=== PATIENT | female | born 1950 | race Caucasian/White ===

== ENCOUNTER 2016-07-01 10:02 | Outpatient (CLI) ==
[2016-01-14 11:09] VITALS: BMI 25.4
[2016-07-01 10:32] LABS: BASOPHILS % (AUTO) 0.4 % (0.0-3.0); EOSINOPHILS # (AUTO) 0.2 K/ul (0.0-0.7); EOSINOPHILS % (AUTO) 1.5 % (0.0-7.0); HEMATOCRIT 42.7 % (37.0-47.0); HEMOGLOBIN 14.2 g/dl (12.0-16.0); IMMATURE GRANULOCYTE % (AUTO) 0.2 % (0.0-5.0); LYMPHOCYTES # (AUTO) 1.9 K/uL (0.60-3.4); LYMPHOCYTES % (AUTO) 18.9 (10.0-50.0); MEAN CORPUSCULAR HEMOGLOBIN 29.6 pg (27.0-31.0); MEAN CORPUSCULAR HGB CONC 33.3 (31.8-35.4); MONOCYTES # (AUTO) 0.8 K/uL (0.4-2.0); MONOCYTES % (AUTO) 8.1 (0-10); NEUTROPHILS % (AUTO) 70.9; PLATELET COUNT 296 10^3/uL (140-440)
[2016-07-01 10:34] LABS: ADD URINE MICROSCOPIC YES; BILIRUBIN,URINE Negative (NEGATIVE); KETONES,URINE Negative (NEGATIVE); LEUKOCYTE ESTERASE ,URINE 1+ (NEGATIVE); NITRITE,URINE Negative (NEGATIVE); PH,URINE 5.5 (5-9); PROTEIN,URINE Negative (NEGATIVE); URINE, BLOOD Negative (NEGATIVE)
--- NOTE | 2016-07-01 10:37 | DI ---
EXAM: Two views of the chest. History: Short of breath Comparison: Chest radiograph 01/14/2016 Findings: Heart is mildly enlarged. No focal consolidation. No appreciable pleural fluid and no p neumothorax. Atherosclerotic vascular calcifications. No acute osseous abnormalities. Impression: Mild cardiomegaly without acute disease in the chest.
[2016-07-01 10:38] LABS: BACTERIA,URINE TRACE (NOT PRESENT)
[2016-07-01 10:54] LABS: ALBUMIN 4.3 g/dL (3.4-5.0); ALBUMIN/GLOBULIN RATIO 1.19; ANION GAP 14.9; BILIRUBIN,TOTAL 0.42 mg/dL (0.00-1.20); BUN/CREATININE RATIO 13.88; CALCIUM 9.9 mg/dL (8.2-10.2); CREATININE 1.44 mg/dL (0.60-1.30); POTASSIUM 3.9 mmol/L (3.5-5.10); TOTAL PROTEIN 7.9 g/dL (5.8-8.1)
== END 2016-07-01 10:03 | disposition home or self-care (01) ==
LOC: RAD 10:02
PROVIDERS: ATTEND Emergency Medicine
DX: R06.02 Shortness of breath (principal); R53.1 Weakness; R25.8 Other abnormal involuntary movements
CPT/HCPCS: 36415; 80053; 81001; 85025

== ENCOUNTER 2016-07-06 21:06 | Observation (INO) ==
[2016-07-06 21:21] VITALS: BMI 26.8
[2016-07-06] MEDS ORDERED: GI COCKTAIL PO STA (21:34)
--- NOTE | 2016-07-06 21:40 | ED.PDOC ---
General ED Provider: Dr. PANDA SHRESTHA Chief Complaint: Chest Pain Stated Complaint: Patient is a 65 year old who complains of left lower below the breast chest pain. She has had it off and on for two weeks. seen PCP given Breathing treatments but just made her jittery. Admits to smoking for a long time but has cut back in the past few days. Time Seen by Physician: 21:36 Mode of Arrival: Walk-In Information Source: Patient Exam Limitations: No limitations Primary Care Provider: CB SANTOS Nursing and Triage Documentation Reviewed and Agree: Yes Cardiovascular Complaint Exam - Chest Pain Complaint/Exam Onset: Gradual Duration: off and on for two months Symptoms Are: Still present Timing: Constant Length of Chest Pain Episodes: 30 min Initial Severity: Moderate Current Severity: Moderate Location: Reports: Left anterior (below the breast ) Pain Radiates: Reports: None Character: Reports: Heaviness Aggravating: Reports: Deep breaths Alleviating: Reports: None Associated Signs and Symptoms: Reports: Short of air. Denies: Diaphoresis, Nausea, Vomiting, Fever, Palpitations, Cough, Hemoptysis, Back pain, Abdominal pain, Dizziness, Calf pain, Calf swelling Related Surgical History: Reports: None AMI/ACS Risk Factors: Reports: Smoking Pulmonary Embolism Risk Factors: Reports: None Prior Care for this Complaint: No Recent Stress Test: No Recent Echo/LV Function: No JVD Present: No Subcutaneous Emphysema Present: No Diminshed Breath Sounds: No Reproducible Chest Wall Pain: No Bilateral Pulses Present: No Unequal Pulses Noted: No Review of Systems - Review Of Systems Constitutional: Reports: No symptoms Ears, Nose, Mouth, Throat: Reports: No symptoms Respiratory: Reports: Short of air Cardiac: Reports: Chest pain GI: Reports: No symptoms : Reports: No symptoms Musculoskeletal: Reports: No symptoms Skin: Reports: No symptoms Neurological: Reports: Anxiety Endocrine: Reports: No symptoms All Other Systems: Reviewed and Negative Past Medical History - Past Medical History Endocrine: Reports: None Cardiovascular: Reports: Hypertension Respiratory: Reports: Other Hematological: Reports: None Gastrointestinal: Reports: Other Genitourinary: Reports: Other Neuro/Psych: Reports: Other Musculoskeletal: Reports: Other Cancer: Reports: Other Last Menstrual Period: A LONG TIME AGO - Surgical History General Surgical History: Reports: Unknown - Family History Family History: Reports: Unknown - Social History Smoking Status: Current every day smoker, Heavy tobacco smoker Hx Substance Use: No Alcohol Screening: Occasionally - Immunizations Tetanus Shot up to Date: No Physical Exam - Physical Exam Appearance: Ill-appearing Ill-appearing: Moderate Pain Distress: Severe Eyes: KEE, EOMI, Conjunctiva clear Neck: Supple Respiratory: Airway patent, Breath sounds clear, Breath sounds equal, Respirations nonlabored Cardiovascular: RRR, Pulses normal, No rub, No murmur GI/: Soft Musculoskeletal: Normal strength Skin: Warm, Dry, Normal color Neurological: Sensation intact, Motor intact Psychiatric: Anxious Interpretation - Radiology Interpretation Radiology Interpretation By: Radiologist Radiology Results: Negative Exam Interpreted: CT Scan - [employer] Rate: Normal Rhythm: Sinus Ectopy: None - EKG Interpretation Rate: Normal Rhythm: Sinus Ectopy: None [place]: NL ST Segment: Normal Interpretation: Old Anterior infact age undetermined Critical Care Note - Critical Care Note Total Time (mins): 20 Course - Course Hematology/Chemistry: 07/08/16 05:30 07/08/16 05:30 Orders, Labs, Meds: Lab Review 07/06/16 21:40 WBC 7.44 RBC 4.52 Hgb 13.2 Hct 40.1 MCV 88.7 MCH 29.2 MCHC 32.9 RDW Coeff of Jostin 12.5 Plt Count 228 Immature Gran % (Auto) 0.3 Neut % (Auto) 47.0 Lymph % (Auto) 37.8 [place] % (Auto) 12.6 H Eos % (Auto) 1.9 Baso % (Auto) 0.4 Immature Gran # (Auto) 0.0 Neut # 3.5 Lymph # 2.8 [place] # 0.9 Eos # 0.1 Baso # 0.0 D-Dimer 596.64 H Sodium 140 Potassium 3.4 L Chloride 100 Carbon Dioxide 27 Anion Gap 16.4 BUN 22 H Creatinine 1.44 H Estimated GFR (MDRD) 37.00 BUN/Creatinine Ratio 15.27 Glucose 115 Calcium 9.6 Total Bilirubin 0.43 AST 16 ALT 14 Alkaline Phosphatase 138 Total Creatine Kinase 58 Troponin I 0.0210 B-Natriuretic Peptide 151 H Total Protein 7.4 Albumin 4.2 Globulin 3.2 Albumin/Globulin Ratio 1.31 Orders Category Date Time Status EKG-(ED ONLY) Stat CARDIO 07/06/16 21:34 Completed ED APPLY O2 .ONCE EMERGENCY 07/06/16 21:34 Active ED TOBACCO CURER APPLIED .ONCE EMERGENCY 07/06/16 21:34 Active ED IV/MEDIPORT/POWERPORT .ONCE EMERGENCY 07/06/16 21:34 Active B-TYPE NATRIURETIC PEPTIDE Stat LAB 07/06/16 21:40 Completed BLOOD CULTURE Stat LAB 07/06/16 21:40 Completed CBC W/ AUTO DIFF Stat LAB 07/06/16 21:40 Completed COMPREHENSIVE METABOLIC PANEL Stat LAB 07/06/16 21:40 Completed CREATINE KINASE Stat LAB 07/06/16 21:40 Completed D-DIMER Stat LAB 07/06/16 21:40 Completed TROPONIN I Stat LAB 07/06/16 21:40 Completed 0.9 % Sodium Chloride [Saline Flush] MEDS 07/06/16 21:34 Discontinued 1 syr IVF PRN PRN Ketorolac Tromethamine [Toradol] MEDS 07/06/16 21:42 Discontinued 30 mg IVP ONCE STA Mag-Al Plus//Lidocaine [Gi Cocktail] MEDS 07/06/16 21:34 Discontinued 30 ml PO ONCE STA Morphine Sulfate [Morphine 4 mg/ml Syringe] MEDS 07/06/16 23:32 Discontinued 4 mg IVP ONCE STA Ondansetron HCl/Pf [Zofran 4 mg/2 ml] MEDS 07/06/16 21:42 Discontinued 4 mg IVP ONCE STA CT CHEST W/O CONTRAST Stat RADS 07/06/16 21:44 Completed Medications Discontinued Medications Generic Name Dose Route Start Last Admin Trade Name Freq PRN Reason Stop Dose Admin Al Hydroxide/Mg Hydroxide 30 ml 07/06/16 21:34 07/06/16 21:40 Gi Cocktail PO 07/06/16 21:35 30 ml ONCE STA Administration Alprazolam 0.25 mg 07/06/16 23:50 07/08/16 09:07 Xanax PO 0.25 mg TID PRN Administration Anxiety Aspirin 81 mg 07/07/16 08:00 07/08/16 09:07 Aspirin Ec PO 81 mg DAILYWM CHILO Administration Carvedilol 12.5 mg 07/07/16 08:00 07/07/16 08:49 Coreg PO Not Given BIDWM CHILO Carvedilol 12.5 mg 07/07/16 08:30 07/08/16 09:06 Coreg PO 12.5 mg BIDWM CHILO Administration Ciprofloxacin 250 mg 07/07/16 09:00 07/07/16 20:46 Cipro PO 07/07/16 23:59 250 mg BIDCIPRO CHILO Administration Enoxaparin Sodium 40 mg 07/07/16 09:00 07/08/16 09:07 Lovenox SUBCUT 40 mg DAILY CHILO Administration Escitalopram Oxalate 20 mg 07/08/16 09:00 07/08/16 09:07 Lexapro PO 20 mg DAILY CHILO Administration HCTZ/Losartan Potassium 1 tab 07/07/16 09:00 07/08/16 09:07 Hyzaar 50-12.5 Mg Tab PO 1 tab QAM CHILO Administration Ketorolac Tromethamine 30 mg 07/06/16 21:42 07/06/16 22:06 Toradol IVP 07/06/16 21:43 30 mg ONCE STA Administration Ketorolac Tromethamine 30 mg 07/07/16 08:49 07/07/16 10:27 Toradol IVP 07/07/16 08:50 30 mg ONCE STA Administration Morphine Sulfate 4 mg 07/06/16 23:32 07/06/16 23:39 Morphine 4 Mg/Ml Syringe IVP 07/06/16 23:33 4 mg ONCE STA Administration Morphine Sulfate 2 mg 07/06/16 23:45 07/07/16 18:18 Morphine 2 Mg/Ml Syringe IVP 2 mg Q4H PRN Administration Severe Pain Non-Formulary Medication 1 each 07/07/16 09:00 07/08/16 09:11 Umeclidinium Brm/Vilanterol Tr [Anoro Ellipta 62.5-25 Mcg Inh] IH Not Given DAILY CHILO Omeprazole 20 mg 07/07/16 06:30 07/07/16 06:10 Prilosec PO 20 mg BIDAC CHILO Administration Omeprazole 20 mg 07/07/16 17:00 07/08/16 05:34 Prilosec PO 20 mg BIDAC CHILO Administration Ondansetron HCl 4 mg 07/06/16 21:42 07/06/16 22:07 Zofran 4 Mg/2 Ml IVP 07/06/16 21:43 4 mg ONCE STA Administration Ondansetron HCl 4 mg 07/06/16 23:45 Zofran 4 Mg/2 Ml IVP Q6H PRN Nausea / Vomiting Sodium Chloride 1 syr 07/06/16 21:34 07/06/16 23:44 Saline Flush IVF 1 syr PRN PRN Administration To flush IV Sodium Chloride 1 syr 07/07/16 05:00 07/08/16 13:11 Saline Flush IVF 1 syr Q8HR CHILO Administration Vital Signs: Temp Pulse Resp BP Pulse Ox 07/06/16 21:08 98.4 F 62 18 176/85 H 98 JUDY Risk Score Age >/= 65: Yes >/= 3 CAD Risk Factors: Yes Known CAD (Stenosis >/= 50%): No ASA Use in Past 7 Days: Yes Severe Angina (>/= 2 episodes in 24 hours): Yes EKG ST Changes >/= 0.5mm: No Postive Cardiac Marker: No JUDY Total Score: 4 JUDY Risk Score: Risk Score Odds of by 30D 0 0.1 (0.1-0.2) 1 0.3 (0.2-0.3) 2 0.4 (0.3-0.5) 3 0.7 (0.6-0.9) 4 1.2 (1.0-1.5) 5 2.2 (1.9-2.6) 6 3.0 (2.5-3.6) 7 4.8 (3.8-6.1) Departure - Departure Time of Disposition: 23:53 Disposition: PLACED OBSERVATION Discharge Problem: Chest pain Condition: Fair Pt referred to PMD for follow-up: Yes Allergies/Adverse Reactions: Allergies No Known Allergies Allergy (Verified 07/15/16 01:34) Home Medications: Ambulatory Orders Alprazolam [Xanax] 0.25 mg PO TID PRN #90 tablet 01/18/16 Aspirin [Aspirin EC] 81 mg PO DAILYWM #30 tablet. 01/18/16 Carvedilol [Coreg] 12.5 mg PO BIDWM #60 tablet 01/18/16 Losartan/Hydrochlorothiazide [Hyzaar 50-12.5 mg Tab] 1 tab PO QAM #30 tablet Omeprazole [Prilosec] 20 mg PO BIDAC 07/06/16 Prednisone 5 mg PO BIDWM #14 tablet 07/08/16 Albuterol Sulfate [Ventolin Hfa] 2 puff IH Q4H PRN 07/15/16
[2016-07-06] MEDS ORDERED: TORADOL IVP STA (21:42)
[2016-07-06] MEDS ORDERED: ZOFRAN 4 MG/2 ML IVP STA (21:42)
[2016-07-06 21:53] LABS: BASOPHILS % (AUTO) 0.4 % (0.0-3.0); EOSINOPHILS # (AUTO) 0.1 K/ul (0.0-0.7); EOSINOPHILS % (AUTO) 1.9 % (0.0-7.0); HEMATOCRIT 40.1 % (37.0-47.0); HEMOGLOBIN 13.2 g/dl (12.0-16.0); IMMATURE GRANULOCYTE % (AUTO) 0.3 % (0.0-5.0); LYMPHOCYTES # (AUTO) 2.8 K/uL (0.60-3.4); LYMPHOCYTES % (AUTO) 37.8 (10.0-50.0); MEAN CORPUSCULAR HEMOGLOBIN 29.2 pg (27.0-31.0); MEAN CORPUSCULAR HGB CONC 32.9 (31.8-35.4); MEAN CORPUSCULAR VOLUME 88.7 fl (81.0-99.0); MONOCYTES # (AUTO) 0.9 K/uL (0.4-2.0); MONOCYTES % (AUTO) 12.6 (0-10); NEUTROPHILS # (AUTO) 3.5 K/ul (2.0-6.9); PLATELET COUNT 228 10^3/uL (140-440); RED BLOOD COUNT 4.52 10^6/ul (4.20-5.40); WHITE BLOOD COUNT 7.44 K/ul (4.6-10.2)
[2016-07-06 22:18] LABS: ALBUMIN 4.2 g/dL (3.4-5.0); ALBUMIN/GLOBULIN RATIO 1.31; ANION GAP 16.4; BILIRUBIN,TOTAL 0.43 mg/dL (0.00-1.20); BUN/CREATININE RATIO 15.27; CALCIUM 9.6 mg/dL (8.2-10.2); CREATININE 1.44 mg/dL (0.60-1.30); POTASSIUM 3.4 mmol/L (3.5-5.10); TOTAL PROTEIN 7.4 g/dL (5.8-8.1); TROPONIN I 0.021 ng/ml (0.0000-0.4000)
--- NOTE | 2016-07-06 22:22 | CT ---
Exam: CT of the chest without contrast History: Chest pain Technique: [address] of the chest without intravascular contrast FINDINGS: Lung windows show mild emphysematous change. No parenchymal abnormality otherwise. Ather osclerotic calcification of the aorta and coronary arteries. No pathologic lymph node enlargement o r abundance of mediastinum. No acute findings of the chest wall soft tissues or bony thorax. No ac tex findings of the upper abdomen. Scarring and parenchymal calcifications of the right kidney. Impression: 1. No acute findings of the chest 2. Mild emphysematous change
[2016-07-06] MEDS ORDERED: MORPHINE 4 MG/ML SYRINGE IVP STA (23:32)
[2016-07-06] MEDS ORDERED: ZOFRAN 4 MG/2 ML IVP PRN (23:45)
[2016-07-06] MEDS ORDERED: MORPHINE 2 MG/ML SYRINGE IVP PRN (23:45)
[2016-07-07 06:26] LABS: BASOPHILS % (AUTO) 0.3 % (0.0-3.0); EOSINOPHILS # (AUTO) 0.2 K/ul (0.0-0.7); EOSINOPHILS % (AUTO) 2.1 % (0.0-7.0); HEMATOCRIT 39.8 % (37.0-47.0); HEMOGLOBIN 12.8 g/dl (12.0-16.0); IMMATURE GRANULOCYTE % (AUTO) 0.3 % (0.0-5.0); LYMPHOCYTES # (AUTO) 2.4 K/uL (0.60-3.4); LYMPHOCYTES % (AUTO) 34.4 (10.0-50.0); MEAN CORPUSCULAR HGB CONC 32.2 (31.8-35.4); MONOCYTES # (AUTO) 0.9 K/uL (0.4-2.0); MONOCYTES % (AUTO) 12.8 (0-10); NEUTROPHILS # (AUTO) 3.5 K/ul (2.0-6.9); NEUTROPHILS % (AUTO) 50.1; PLATELET COUNT 208 10^3/uL (140-440); RED BLOOD COUNT 4.42 10^6/ul (4.20-5.40); WHITE BLOOD COUNT 6.98 K/ul (4.6-10.2)
[2016-07-07] MEDS ORDERED: PRILOSEC PO SCH (06:30)
[2016-07-07 06:58] LABS: ANION GAP 14.6; BUN/CREATININE RATIO 12.75; CALCIUM 9.4 mg/dL (8.2-10.2); CREATININE 1.96 mg/dL (0.60-1.30); POTASSIUM 3.6 mmol/L (3.5-5.10); TROPONIN I 0.028 ng/ml (0.0000-0.4000)
[2016-07-07 07:25] LABS: CREATINE KINASE MB 1.8 ng/ml (0.0-3.6)
[2016-07-07] MEDS ORDERED: COREG PO SCH (08:00)
[2016-07-07] MEDS ORDERED: TORADOL IVP STA (08:49)
[2016-07-07] MEDS: ASPIRIN EC PO SCH (09:55)
[2016-07-07] MEDS: CIPRO PO SCH ×2 (09:56→20:46)
[2016-07-07] MEDS: HYZAAR 50-12.5 MG TAB PO SCH (09:56)
[2016-07-07] MEDS: COREG PO SCH ×2 (09:56→16:44)
[2016-07-07] MEDS: XANAX PO PRN ×2 (09:57→18:06)
[2016-07-07] MEDS: LOVENOX SUBCUT SCH (10:00)
[2016-07-07] MEDS: NON-FORMULARY MEDICATION (Umeclidinium Brm/Vilanterol Tr [Anoro Ellipta 62.5-25 Mcg Inh] 1 IH SCH (10:01)
[2016-07-07 15:06] LABS: TROPONIN I 0.014 ng/ml (0.0000-0.4000)
[2016-07-07 15:08] LABS: CREATINE KINASE MB 3.2 ng/ml (0.0-3.6)
[2016-07-07] MEDS: PRILOSEC PO SCH (16:44)
[2016-07-08] MEDS: PRILOSEC PO SCH (05:34)
[2016-07-08 06:09] LABS: BASOPHILS % (AUTO) 0.3 % (0.0-3.0); EOSINOPHILS # (AUTO) 0.2 K/ul (0.0-0.7); EOSINOPHILS % (AUTO) 2.3 % (0.0-7.0); HEMATOCRIT 38.4 % (37.0-47.0); HEMOGLOBIN 12.4 g/dl (12.0-16.0); IMMATURE GRANULOCYTE % (AUTO) 0.3 % (0.0-5.0); LYMPHOCYTES # (AUTO) 2.5 K/uL (0.60-3.4); LYMPHOCYTES % (AUTO) 31.8 (10.0-50.0); MEAN CORPUSCULAR HEMOGLOBIN 29.1 pg (27.0-31.0); MEAN CORPUSCULAR HGB CONC 32.3 (31.8-35.4); MEAN CORPUSCULAR VOLUME 90.1 fl (81.0-99.0); MONOCYTES # (AUTO) 0.8 K/uL (0.4-2.0); MONOCYTES % (AUTO) 9.9 (0-10); NEUTROPHILS # (AUTO) 4.4 K/ul (2.0-6.9); NEUTROPHILS % (AUTO) 55.4; PLATELET COUNT 204 10^3/uL (140-440); RED BLOOD COUNT 4.26 10^6/ul (4.20-5.40); WHITE BLOOD COUNT 7.86 K/ul (4.6-10.2)
[2016-07-08 06:35] LABS: ANION GAP 13.8; BUN/CREATININE RATIO 18.33; CALCIUM 9.3 mg/dL (8.2-10.2); CREATININE 1.8 mg/dL (0.60-1.30); POTASSIUM 3.8 mmol/L (3.5-5.10)
[2016-07-08] MEDS ORDERED: ATROPINE SULFATE PFS ONE (07:12)
[2016-07-08] MEDS ORDERED: DOBUTAMINE 250 ML IV ONE (07:12)
[2016-07-08] MEDS ORDERED: LEXAPRO PO SCH (09:00)
[2016-07-08] MEDS: COREG PO SCH (09:06)
[2016-07-08] MEDS: HYZAAR 50-12.5 MG TAB PO SCH (09:07)
[2016-07-08] MEDS: ASPIRIN EC PO SCH (09:07)
[2016-07-08] MEDS: XANAX PO PRN (09:07)
[2016-07-08] MEDS: LOVENOX SUBCUT SCH (09:07)
[2016-07-08] MEDS: NON-FORMULARY MEDICATION (Umeclidinium Brm/Vilanterol Tr [Anoro Ellipta 62.5-25 Mcg Inh] 1 IH SCH (09:11)
[2016-07-08 10:26] VITALS: BP 108/61; TEMP 97.5
--- NOTE | 2016-07-08 13:17 | PN ---
DATE OF SERVICE: 07/07/16 SUBJECTIVE: The patient is a 65 year old female been having the left sided chest pain was seen in the office three days ago thinking it maybe a rib fracture; x-ray of the rib was negative. The patient went home and still having the left sided chest pain and the pain was sometimes radiating to the left arm with some shortness of breath. She has a history or COPD but the patient got panicked today and came back to the emergency room again. She was seen by Dr. Velarde. EKG is normal sinus no acute ST-T wave changes. First set of cardiac enzymes are negative. Chest x-ray is negative for any pneumonia. In review of her smoking and age the patient is admitted to the hospital for observation to rule out acute coronary syndrome. REVIEW OF SYSTEMS: CONSTITUTIONAL: No fever, no chills. HEENT: Normal. ENDOCRINE: No weight gain, no weight loss. CVS: No angina symptoms. No CHF symptoms. No palpitations. No atypical chest pain for CAD. No shortness of breath. No PND, no orthopnea. RESPIRATORY: No cough, no hemoptysis. GI: No nausea, no vomiting. No abdominal pain. : No hematuria. No polyuria. MUSCULOSKELETAL:. No joint swelling. PSYCHIATRIC: Not anxious. No depression. No suicidal thoughts. No homicidal thoughts. SKIN: Intact. No rash. PHYSICAL EXAMINATION: GENERAL: As of now the patient is lying in the bed and not in any distress, complains about the left sided chest pain. V/S: Blood pressure 122/60, respiratory rate 16, heart rate 63, temperature 97.9. HEENT: Normocephalic, atraumatic. Ears, eyes, nose and throat normal. Mucosa dry. NECK: Supple. No JVD, no carotid bruit. No lymphadenopathy. LUNGS: Clear to auscultation. No rales or rhonchi. HEART: S1, S2 normal. No S3. No murmur, gallop or regurgitation. Left lower rib tenderness, percussion tenderness is positive. Palpable tenderness is positive. No lesion there. ABDOMEN: Soft, nontender. Bowel sounds active. No rigidity. No rebound or guarding. No CVA tenderness. EXTREMITIES: No clubbing, cyanosis or pedal edema. MUSCULOSKELETAL: No joint swelling. NEUROLOGIC: Awake, alert, oriented times three. No focal deficit. LYMPHATIC: No lymph nodes palpable. SKIN: Intact. No rash. LABS: WBC 6.98, hgb 12.8, hct 39.8, plt count 208, d-dimer 596, sodium 142, potassium 3.6, chloride 100, Bicarb 31, BUN 25, creatinine 1.96 and BNP 151. Chest x-ray negative and CT of the chest is negative. ASSESSMENT: 1. Chest pain rule out ACS 2. Left sided lower rib cage pain 3. Anxiety 4. Hypertension 5. COPD 6. Osteoarthritis PLAN: 1. Admit patient for the observation 2. CBC and CMP today and daily 3. Cardiac enzymes and Troponin 4. Toradol 30mg IV push 5. Will get a Dobutamine stress echo in the morning sestamibi 6. Morphine for the paint but the patient doesn't morphine as it made her feel funny TIME SPENT: More than 30 minutes MTDD
--- NOTE | 2016-07-09 09:24 | DOBSTECHO ---
Ordering Physician: JAZMYNE VEGA Date of Test: 07/08/16 Reason for Examination: CHEST PAIN Current Medications: COREG, HYZAAR, PRILOSEC, CIPRO, XANAX Height: 65" Weight: 161 LBS Target Heart Rate: 131/155 ST Segment Stage Time HR/BPM BP/MMHG Rhythm +/- Up Down Comments/Symptoms Control Sitting 70 142/60 SR X NONE Dobutamine 250mg/D5W 5cmg/KG/mn 10cmg/KG/mn 3:00 98 180/68 SR X NONE 15cmg/KG/mn 2:00 88 186/60 SR X NONE 20cmg/KG/mn 2:00 96 178/60 SR X NONE 25cmg/KG/mn 2:00 99 182/54 SR X NONE 30cmg/KG/mn 2:00 106 SR X NONE 35cmg/KG/mn 2:00 115 188/46 SR X NONE 40cmg/KG/mn :24 120 Time: 4" HR B/P Time: 8" HR B/P Time: HR B/P Recovery 96 176/58 Recovery 87 Recovery Total Time: 13:24 Maximum Heart Rate Reached: 120 Interpretation: 1. NO EVIDENCE OF ISCHEMIA BY ST-T WAVE CHANGES FROM HEART RATE 70/MINUTE TO 120 /MINUTE 2. NO CHEST PAIN OR CHEST DISCOMFORT 3. NORMAL LEFT VENTRICULAR CONTRACTILITY RESTING AND POST EXERCISE MTDD
--- NOTE | 2016-07-09 09:28 | ECHOSTRESS ---
Date of Exam: 07/08/16 Ordering Physician: JAZMYNE VEGA Reason for Echo: CHEST PAIN, DOBUTAMINE STRESS --NO ISCHEMIA M-Mode Normal Adult Results LV Dimensions Normal Adult Results AoV Opening excursions >1.6 LVEDD-base- 3.5-5.8 Ao root dimensions 2.0-3.7 LVESD-base- 3.1-4.6 L. Atrium dimensions 1.9-3.8 Post. Wall thickness 0.8-1.1 IV septum (thickness) 0.7-1.2 Post. Wall excursion 0.72-1.3 Septal motion Systolic motion R. Ventricular cavity 1.5-2.0 LVEF 60% Paradoxical septal wall motion 2-D: NORMAL LEFT VENTRICULAR CONTRACTILITY--RESTING AND DURING DOBUTAMINE INFUSION M-MODE: MV: AV: TV: PV: CHAMBER SIZE: WALL MOTION: NORMAL LEFT VENTRICULAR CONTRACTILITY--RESTING AND DURING DOBUTAMINE INFUSION PERICARDIUM: INTERPRETATION: 1. NORMAL LEFT VENTRICULAR CONTRACTILITY--RESTING AND DURING DOBUTAMINE INFUSION MTDD
--- NOTE | 2016-07-09 15:54 | PN ---
DATE OF SERVICE: 07/08/16 SUBJECTIVE: The patient is a lying in the bed and not in any distress. Just had a stress test done and says that during the Dobutamine stress echo she did have shakiness , Still has complaints about the left lower rib hurting when you touch. REVIEW OF SYSTEMS: CONSTITUTIONAL: No fever, no chills. HEENT: Normal. ENDOCRINE: No weight gain, no weight loss. CVS: No angina symptoms. No CHF symptoms. No palpitations. No atypical chest pain for CAD. No shortness of breath. No PND, no orthopnea. RESPIRATORY: No cough, no hemoptysis. GI: No nausea, no vomiting. No abdominal pain. : No hematuria. No polyuria. MUSCULOSKELETAL:. No joint swelling. PSYCHIATRIC: Anxious. No depression. No suicidal thoughts. No homicidal thoughts. SKIN: Intact. No rash. PHYSICAL EXAMINATION: V/S: Blood pressure 135/73, respiratory rate 18, heart rate 81 and temperature 97.9. HEENT: Normocephalic, atraumatic. Ears, eyes, nose and throat normal. NECK: Supple. No JVD, no carotid bruit. No lymphadenopathy. LUNGS: Clear to auscultation. No rales or rhonchi. HEART: S1, S2 normal. No S3. No murmur, gallop or regurgitation. ABDOMEN: Soft, nontender. Bowel sounds active. No rigidity. No rebound or guarding. No CVA tenderness. Left lower rib tenderness is present. EXTREMITIES: No clubbing, cyanosis or pedal edema. MUSCULOSKELETAL: No joint swelling. NEUROLOGIC: Awake, alert, oriented times three. No focal deficit. LYMPHATIC: No lymph nodes palpable. SKIN: Intact. LABS: WBC 7.86, hgb 12.4, hct 38.4, plt count 204, Sodium 141, potassium 3.8, chloride 101, [id number], BUN 33 and creatinine 1.30. ASSESSMENT: 1. Chest pain, rule ACS 2. Left lower rib tenderness most likely costochondritis 3. COPD 4. Chronic kidney disease 5. Anxiety 6. Depression PLAN: 1. Discharge patient home 2. Lifestyle modification 3. Lexapro 20mg PO daily 4. Increase Xanax three times a day 5. Prednisone 5mg twice a day 6. Activity as tolerated 7. Follow up in the office within one week. TIME SPENT: More than 30 minutes MTDD
--- NOTE | 2016-07-22 08:51 | SSS ---
DATE OF SERVICE: 07/06/16 - Admission date 07/08/16 - Discharge date REASON FOR ADMISSION: Chest pain. HISTORY OF PRESENT ILLNESS: This is a 65-year-old female admitted with complaint of chest pain. She complains of pain under left breast, sharp then dull for 4 days. Heaviness and shortness of air at times. No nausea. No abdominal pain. No diaphoresis. REVIEW OF SYSTEMS: CONSTITUTIONAL: No night sweats. No fatigue, malaise, lethargy. No fever or chills. HEENT: Eyes: No visual changes. No eye pain. No eye discharge. ENT: No runny nose. No epistaxis. No sinus pain. No sore throat. No odynophagia. No ear pain. No congestion. RESPIRATORY: No cough, no congestion. No hemoptysis. CARDIOVASCULAR: No angina symptoms. No CHF symptoms. No atypical chest pain for CAD. No palpitations. No shortness of breath. Pain under left breast, tenderness under left breast. Shortness of air at times. GASTROINTESTINAL: No nausea. No abdominal pain. No nausea or vomiting. No diarrhea or constipation. No hematemesis. No hematochezia. GENITOURINARY: No urgency. No frequency. No dysuria. No hematuria. No obstructive symptoms. No discharge. No pain. No significant abnormal bleeding. MUSCULOSKELETAL: As above, pain under left breast. NEUROLOGICAL: Awake, alert, oriented to time, place and person. No headache. No neck pain. No syncope. No seizures. No dizziness. PSYCHIATRIC: Anxious. No depression. No suicidal thoughts. No homicidal thoughts. SKIN: No rash. No lesions. No wounds. ENDOCRINE: No unexplained weight loss. No weight gain. HEMATOLOGIC/LYMPHATIC: No anemia. No purpura. No petechiae. No prolonged or excessive bleeding. No palpable lymph nodes. PAST HISTORY: 1. Hypertension 2. Migraines 3. GI disorder 4. Right wrist fracture 5. Ankle fracture PERSONAL/FAMILY HISTORY/SOCIAL HISTORY: ; lives alone. No BME reported. Current smoker (heavy). Occasional alcohol use. PHYSICAL EXAMINATION: GENERAL: female, age 65 years. Height 65 inches, weight 161 lbs. BMI 26.8. VITAL SIGNS: Temperature 97.2, pulse 60, respiratory rate 20, BP 115/68. 95% on room air. HEENT: Head normocephalic, atraumatic. Eyes: Extraocular muscles are intact. Pupils are equal, round and reactive to light and accommodation. Ears: No lesions. Nose appeared normal. Throat: No exudate or erythema. NECK: Supple. No JVD, no carotid bruit. No lymphadenopathy or thyromegaly. LUNGS: Bilaterally clear and equal. Percussion note normal. Chest symmetrical. HEART: S1, S2, no S3. No murmur, gallop or regurgitation. No cyanosis or clubbing. No ascites. Pulses: Dorsalis pedis and posterior tibial pulses +1 to +2 both sides. ABDOMEN: Soft. Nontender. Bowel sounds active. No ascites. No CVA tenderness. No mass felt. EXTREMITIES: No edema. Full range of motion of all extremities, equal. [employer]: Awake, alert, oriented times three. No deficit. SKIN: Not dry. Intact. Turgor - normal. LYMPHATIC: No palpable lymph nodes/no lymphedema. MUSCULOSKELETAL: Normal joints with no swelling. Muscle tone is normal. Old/present records reviewed Office records reviewed. ALLERGIES: NKDA MEDICATIONS: 1. Xanax 2. ASA 3. Carvedilol 4. Hyzaar 5. Omeprazole LABS/EKG'S/X-RAY/ECHO/ABG: CBC within normal limits. K+ 3.4, BUN 22, creatinine 1.44, CPK 58, troponin 0.0210, BNP 151. CPK, troponin within normal limits times three. EKG - normal sinus rhythm. Inferior wall OH age undetermined. Chest CT: No acute findings. Mild emphysema. PROGRESS NOTES: See EMR. DIAGNOSES: 1. CHEST PAIN, RULE OUT ACS 2. COPD 3. GENERALIZED ANXIETY DISORDER 4. DEPRESSION 5. GI DISEASE RECOMMENDATIONS/PLAN: 1. Discharge home 2. Continue home medications 3. Prescription for 5 mg Prednisone b.i.d. times 7 days 4. Lexapro 20 mg daily 5. Make appointment to see Dr. Stout on Tuesday or Tuesday RYAN
== END 2016-07-08 14:24 | disposition home or self-care (01) ==
LOC: ED 21:06 → MEDSURG A 23:37
PROVIDERS: ADMIT Emergency Medicine; ATTEND Emergency Medicine
DX: R07.89 Other chest pain (principal); I10 Essential (primary) hypertension; R07.81 Pleurodynia; J44.9 Chronic obstructive pulmonary disease, unspecified; N18.9 Chronic kidney disease, unspecified; R06.02 Shortness of breath; I25.2 Old myocardial infarction; K92.9 Disease of digestive system, unspecified; M19.90 Unspecified osteoarthritis, unspecified site; F17.210 Nicotine dependence, cigarettes, uncomplicated; F41.1 Generalized anxiety disorder; F32.9 Major depressive disorder, single episode, unspecified; Z79.82 Long term (current) use of aspirin; Z79.899 Other long term (current) drug therapy
CPT/HCPCS: 36415; 80048; 80053; 82550; 82553; 83880; 84484; 85025; 85379; 87040; 93005; 93010; 96372; 96374; 96375; 96376; 99284

== ENCOUNTER 2016-07-14 23:30 | Emergency (ER) ==
[2016-07-14] MEDS ORDERED: DUONEB NEB ONE (23:55)
[2016-07-15 01:34] VITALS: BP 149/83; TEMP 98.1; BMI 26.1
[2016-07-15 02:22] LABS: ABG PCO2 40.5 mmHg (35-45); ABG PH 7.491 (7.35-7.45)
[2016-07-15 02:23] LABS: ABG BASE EXCESS 8 (-2.0-2.0); ABG HCO3 30.9 (22.0-26.0); ABG TCO2 32 (22.0-28.0)
[2016-07-15] MEDS ORDERED: DUONEB NEB STA (02:30)
--- NOTE | 2016-07-15 03:05 | ED.PDOC ---
[id number]: see triage note==--the patient presented during computer downtime and this is an attempt to complete the chart--most of of the data is on paper and not included in this hx Time Seen by Physician: 23:35 Mode of Arrival: Walk-In Information Source: Patient Exam Limitations: No limitations Primary Care Provider: CB MANCIA Nursing and Triage Documentation Reviewed and Agree: Yes Respiratory Complaint Exam - Shortness of Air Complaint/Exam Onset/Duration: several hours Symptoms Are: Still present Timing: Intermittent Initial Severity: Mild Current Severity: Mild Character: Reports: Dyspnea on exertion Aggravating: Reports: None Alleviating: Reports: Bronchodilators Associated Signs and Symptoms: Reports: Cough. Denies: Wheezing, Chest pain with cough, Chest pain, Fever, Chills, Diaphoresis, Nasal congestion, Dizziness , Calf pain, Calf swelling, Edema, Rapid breathing, Labored breathing, Decreased intake Pseudomonas Risk Factors: Reports: None Tuberculosis Risk Factors: Reports: None Home Oxygen Use: No Recent Stress Test: No Recent Echo/LV Function: No Respiratory Distress: None Stridor Present: No Tracheal Deviation: No Subcutaneous Emphysema: No Accessory Muscle Use: No Retractions: Not Present Diminished Breath Sounds: No Prolonged Expiratory Phase: No Unable to Speak Full Sentences: No Fatigue: No Leg Swelling: No Mauricio's Sign Present: No Grunting Respirations: No Kussmaul Respirations: No Differential Diagnoses: Bronchitis Quality Indicator For Non-Traumatic Chest Pain/Syncope: EKG Performed Review of Systems - Review Of Systems Constitutional: Reports: No symptoms Eyes: Reports: No symptoms Ears, Nose, Mouth, Throat: Reports: No symptoms Respiratory: Reports: Cough, Short of air Cardiac: Reports: No symptoms, Palpitations GI: Reports: No symptoms : Reports: No symptoms Musculoskeletal: Reports: No symptoms Skin: Reports: No symptoms Neurological: Reports: No symptoms Endocrine: Reports: No symptoms Hematologic/Lymphatic: Reports: No symptoms All Other Systems: Reviewed and Negative Past Medical History - Past Medical History Endocrine: Reports: None Cardiovascular: Reports: Hypertension Respiratory: Reports: Other Hematological: Reports: None Gastrointestinal: Reports: Other Genitourinary: Reports: Other Neuro/Psych: Reports: Other Musculoskeletal: Reports: Other Cancer: Reports: Other Last Menstrual Period: N/A - Surgical History General Surgical History: Reports: Unknown - Family History Family History: Reports: Unknown - Social History Smoking Status: Current some day smoker Hx Substance Use: No Alcohol Screening: Occasionally Lives: With family - Immunizations Tetanus Shot up to Date: Yes Physical Exam - Physical Exam Appearance: Well-appearing, No pain distress, Well-nourished Eyes: KEE, EOMI, Conjunctiva clear ENT: Ears normal, Nose normal, Oropharynx normal Neck: Supple Respiratory: Airway patent, Breath sounds clear, Breath sounds equal, Respirations nonlabored Cardiovascular: RRR, Pulses normal, No rub, No murmur GI/: Soft, Nontender, No masses, Bowel sounds normal, No Organomegaly Musculoskeletal: Normal strength, ROM intact, No edema, No calf tenderness Skin: Warm, Dry, Normal color Neurological: Sensation intact, Motor intact, Reflexes intact, Cranial nerves intact, Alert, Oriented Psychiatric: Affect appropriate, Mood appropriate Interpretation - Radiology Interpretation Radiology Interpretation By: Radiologist Radiology Results: Positive Exam Interpreted: CXR ("emphysema") Critical Care Note - Critical Care Note Total Time (mins): 0 Course - Course Hematology/Chemistry: 07/15/16 03:15 07/15/16 03:15 Orders, Labs, Meds: Lab Review 07/15/16 07/15/16 02:18 03:15 WBC 9.25 RBC 4.51 Hgb 13.3 Hct 39.5 MCV 87.6 MCH 29.5 MCHC 33.7 RDW Coeff of Jostin 12.5 Plt Count 273 Immature Gran % (Auto) 0.0 Neut % (Auto) 68.2 Lymph % (Auto) 23.8 [place] % (Auto) 7.0 Eos % (Auto) 0.5 Baso % (Auto) 0.2 Immature Gran # (Auto) 0.0 Neut # 6.3 Lymph # 2.2 [place] # 0.7 Eos # 0.1 Baso # 0.0 D-Dimer 0.48 Puncture Site Lb O2 Saturation 99.0 ABG pH 7.491 H ABG pCO2 40.5 ABG pO2 102.0 H ABG HCO3 30.9 H ABG Total CO2 32 H ABG Base Excess 8 H Da Test + FiO2 % 21.0 Sodium 135 L Potassium 4.0 Chloride 98 Carbon Dioxide 24 Anion Gap 17.0 BUN 33 H Creatinine 1.54 H Estimated GFR (MDRD) 34.00 BUN/Creatinine Ratio 21.42 Glucose 128 H Calcium 9.7 Total Bilirubin 0.53 AST 14 L ALT 13 Alkaline Phosphatase 119 Total Creatine Kinase 48 Troponin I 0.0370 B-Natriuretic Peptide 117 H Total Protein 7.4 Albumin 4.2 Globulin 3.2 Albumin/Globulin Ratio 1.31 Orders Category Date Time Status ABG DRAW REQUEST Stat CARDIO 07/15/16 02:18 Completed EKG-(ED ONLY) Stat CARDIO 07/15/16 03:17 Completed NEBULIZER TREATMENT Stat CARDIO 07/15/16 02:30 Completed ABG Stat LAB 07/15/16 02:18 Completed B-TYPE NATRIURETIC PEPTIDE Stat LAB 07/15/16 03:15 Completed CBC W/ AUTO DIFF Stat LAB 07/15/16 03:15 Completed COMPREHENSIVE METABOLIC PANEL Stat LAB 07/15/16 03:15 Completed CREATINE KINASE Stat LAB 07/15/16 03:15 Completed D-DIMER Stat LAB 07/15/16 03:15 Completed TROPONIN I Stat LAB 07/15/16 03:15 Completed Ipratropium/Albuterol Neb [Duoneb] MEDS 07/14/16 23:55 Discontinued 1 vial NEB .STK-MED ONE Ipratropium/Albuterol Neb [Duoneb] MEDS 07/15/16 06:24 Discontinued 1 vial NEB .STK-MED ONE Ipratropium/Albuterol Neb [Duoneb] MEDS 07/15/16 02:30 Discontinued 1 vial NEB ONCE STA CHEST, 2 VIEWS PA & LAT Stat RADS 07/15/16 00:00 Completed Medications Discontinued Medications Generic Name Dose Route Start Last Admin Trade Name Freq PRN Reason Stop Dose Admin Albuterol/Ipratropium 1 vial 07/15/16 02:30 07/14/16 23:55 Duoneb NEB 07/15/16 02:31 1 vial ONCE STA Administration Vital Signs: Temp Pulse Resp BP Pulse Ox 07/14/16 23:30 98.1 F 77 22 149/83 H 100 Departure - Departure Time of Disposition: 03:04 Disposition: HOME SELF-CARE Discharge Problem: Dyspnea Qualifiers: Dyspnea type: unspecified Qualifier Code: (R06.00) Dyspnea, unspecified Instructions: Dyspnea (ED) Condition: Good Pt referred to PMD for follow-up: Yes Additional Instructions: continue inhaler --f/u with dr mancia Allergies/Adverse Reactions: Allergies No Known Allergies Allergy (Verified 07/15/16 01:34) Home Medications: Ambulatory Orders Alprazolam [Xanax] 0.25 mg PO TID PRN #90 tablet 01/18/16 Aspirin [Aspirin EC] 81 mg PO DAILYWM #30 tablet. 01/18/16 Carvedilol [Coreg] 12.5 mg PO BIDWM #60 tablet 01/18/16 Losartan/Hydrochlorothiazide [Hyzaar 50-12.5 mg Tab] 1 tab PO QAM #30 tablet Omeprazole [Prilosec] 20 mg PO BIDAC 07/06/16 Prednisone 5 mg PO BIDWM #14 tablet 07/08/16 Albuterol Sulfate [Ventolin Hfa] 2 puff IH Q4H PRN 07/15/16 Disposition Discussed With: Patient
[2016-07-15 03:27] LABS: HEMATOCRIT 39.5 % (37.0-47.0); HEMOGLOBIN 13.3 g/dl (12.0-16.0); LYMPHOCYTES % (AUTO) 23.8 (10.0-50.0); MEAN CORPUSCULAR HEMOGLOBIN 29.5 pg (27.0-31.0); MEAN CORPUSCULAR HGB CONC 33.7 (31.8-35.4); MEAN CORPUSCULAR VOLUME 87.6 fl (81.0-99.0); NEUTROPHILS % (AUTO) 68.2; PLATELET COUNT 273 10^3/uL (140-440); RED BLOOD COUNT 4.51 10^6/ul (4.20-5.40); WHITE BLOOD COUNT 9.25 K/ul (4.6-10.2)
[2016-07-15 03:28] LABS: BASOPHILS % (AUTO) 0.2 % (0.0-3.0); EOSINOPHILS # (AUTO) 0.1 K/ul (0.0-0.7); EOSINOPHILS % (AUTO) 0.5 % (0.0-7.0); LYMPHOCYTES # (AUTO) 2.2 K/uL (0.60-3.4); MONOCYTES # (AUTO) 0.7 K/uL (0.4-2.0); NEUTROPHILS # (AUTO) 6.3 K/ul (2.0-6.9)
[2016-07-15 03:30] LABS: BILIRUBIN,TOTAL 0.53 mg/dL (0.00-1.20); BUN/CREATININE RATIO 21.42; CALCIUM 9.7 mg/dL (8.2-10.2); CREATININE 1.54 mg/dL (0.60-1.30)
[2016-07-15 03:31] LABS: ALBUMIN 4.2 g/dL (3.4-5.0); ALBUMIN/GLOBULIN RATIO 1.31; TOTAL PROTEIN 7.4 g/dL (5.8-8.1); TROPONIN I 0.037 ng/ml (0.0000-0.4000)
[2016-07-15] MEDS ORDERED: DUONEB NEB ONE (06:24)
--- NOTE | 2016-07-15 08:17 | DI ---
EXAM: Two views of the chest. History: Short of breath Comparison: Chest radiograph 07/01/2016 Findings: Atherosclerotic vascular calcifications. Borderline cardiomegaly. No focal consolidatio n. No appreciable pleural fluid and no pneumothorax. Emphysema. No acute osseous abnormalities. P robable right nephrolithiasis. Impression: Borderline cardiomegaly without acute disease in the chest. Emphysema.
== END 2016-07-15 03:15 | disposition home or self-care (01) ==
LOC: ED 23:30
DX: R06.00 Dyspnea, unspecified (principal); R05 Cough; J43.9 Emphysema, unspecified; F17.210 Nicotine dependence, cigarettes, uncomplicated; I10 Essential (primary) hypertension; Z79.899 Other long term (current) drug therapy
CPT/HCPCS: 36415; 80053; 82550; 82803; 83880; 84484; 85025; 85379; 93005; 93010; 94640; 99283

== ENCOUNTER 2016-11-17 10:43 | Emergency (ER) ==
[2016-11-17 10:48] VITALS: BP 105/67; TEMP 97.6; BMI 21.6
[2016-11-17] MEDS ORDERED: DUONEB NEB STA (10:56)
[2016-11-17 11:18] LABS: BASOPHILS % (AUTO) 0.5 % (0.0-3.0); EOSINOPHILS # (AUTO) 0.1 K/ul (0.0-0.7); EOSINOPHILS % (AUTO) 1.5 % (0.0-7.0); HEMATOCRIT 41.3 % (37.0-47.0); HEMOGLOBIN 13.9 g/dl (12.0-16.0); IMMATURE GRANULOCYTE % (AUTO) 0.2 % (0.0-5.0); MEAN CORPUSCULAR HEMOGLOBIN 30.2 pg (27.0-31.0); MEAN CORPUSCULAR HGB CONC 33.7 (31.8-35.4); MEAN CORPUSCULAR VOLUME 89.6 fl (81.0-99.0); MONOCYTES # (AUTO) 0.8 K/uL (0.4-2.0); MONOCYTES % (AUTO) 8.6 (0-10); NEUTROPHILS # (AUTO) 5.9 K/ul (2.0-6.9); NEUTROPHILS % (AUTO) 66.2; PLATELET COUNT 280 10^3/uL (140-440); RED BLOOD COUNT 4.61 10^6/ul (4.20-5.40); WHITE BLOOD COUNT 8.83 K/ul (4.6-10.2)
[2016-11-17 11:19] LABS: ABG BASE EXCESS 3 (-2.0-2.0); ABG HCO3 26.3 (22.0-26.0); ABG PCO2 34.8 mmHg (35-45); ABG PH 7.487 (7.35-7.45); ABG TCO2 27 (22.0-28.0)
[2016-11-17 11:42] LABS: ALBUMIN 4.4 g/dL (3.4-5.0); ALBUMIN/GLOBULIN RATIO 1.22; ANION GAP 17.3; BILIRUBIN,TOTAL 0.4 mg/dL (0.00-1.20); BUN/CREATININE RATIO 11.69; CALCIUM 10.2 mg/dL (8.2-10.2); CREATININE 1.71 mg/dL (0.60-1.30); POTASSIUM 4.3 mmol/L (3.5-5.10); TROPONIN I 0.022 ng/ml (0.0000-0.4000)
[2016-11-17 11:44] LABS: FLU INTERNAL QC INTERNAL QC VALID; RAPID FLU A NEGATIVE (NEGATIVE); RAPID FLU B NEGATIVE (NEGATIVE)
--- NOTE | 2016-11-17 12:19 | DI ---
Exam: Chest two-view HISTORY: Cough. Comparison: 07/15/2016. FINDINGS: Two views of the chest demonstrate hyper expanded lungs with no evidence of pneumonia or edema. The heart is normal in size and configuration. The thoracic aorta is partially calcified. Calcified granulomata are noted. The pulmonary vasculature is not congested. The skeletal structure s are intact. There are degenerative findings in the spine. IMPRESSION: No acute cardiopulmonary disease. Hyperexpanded lungs consistent with COPD. Atherosclerosis and prior granulomatosis.
--- NOTE | 2016-11-17 12:40 | CT ---
EXAM: CT ABDOMEN AND PELVIS HISTORY: Left upper quadrant abdominal pain TECHNIQUE: CT abdomen and pelvis without intravenous contrast. Images were reconstructed using 5 m m section thickness. Reformations were prepared. COMPARISON: None FINDINGS: Diagnostic limitations exist without including contrast enhanced images. No focal hepatic or spleni c lesions identified. Gallbladder is mildly distended, otherwise unremarkable. Pancreas and adrena l glands appear normal. Multiple right renal calculi largest at 0.78 cm. The right kidney is mildl y atrophic. The left kidney appears normal. The ureters have no evidence of obstruction. There is severe atherosclerotic disease without aneurysmal caliber of the aorta. Stomach grossly within normal limits. An appendix, if present is not clearly seen. No right lower q uadrant inflammation. Nonobstructive bowel gas pattern. Uterus and urinary bladder are within jero l limits. No ascites. No abdominal wall hernia. There is mild to moderate scoliosis toward the left. Degenerative disc a nd facet disease is noted. There is a tiny micro nodule in the posterior base measuring about 0.3 c m. This is unchanged since the prior CT thorax of 07/06/2016. No pneumoperitoneum. IMPRESSION: 1. No etiology for left upper quadrant abdominal pain. 2. Multiple right renal calculi. The right kidney is mildly atrophic. No hydronephrosis. 3. Severe atherosclerotic disease. 4. Other findings as discussed.
[2016-11-17] MEDS ORDERED: SOLU-MEDROL 125 MG 125 MG in SODIUM CHLORIDE 50 ML IV ONE (14:13)
--- NOTE | 2016-11-17 14:13 | ED.PDOC ---
General ED Provider: Dr. CARLO LEON Chief Complaint: Respiratory Complaint Stated Complaint: cough, short of pain Time Seen by Physician: 11:00 Mode of Arrival: Walk-In Information Source: Patient Exam Limitations: No limitations Primary Care Provider: CB SANTOS Nursing and Triage Documentation Reviewed and Agree: Yes (stephen present) Respiratory Complaint Exam - Respiratory Complaint/Exam Symptoms Are: Still present, Resolved Timing: Intermittent Initial Severity: Moderate Current Severity: None Location: Throat, Chest Character: Reports: Non-productive cough Aggravating: Reports: None Alleviating: Reports: Bronchodilators, Spontaneous resolution Associated Signs and Symptoms: Reports: Nasal congestion. Denies: Rapid breathing, Dyspnea, Fever, Chills, Chest pain, Pleuritic chest pain, Wheezing, Hemoptysis, Dizziness, Calf pain, Calf swelling, Edema, URI, Hoarseness, Sinus discomfort, Vomiting, Sore throat, Weight loss, Decreased oral intake, Increased thirst, Increased appetite, Increased urination Related History: Reports: Similar episode History of Healthcare-Acquired Pneumonia: No Related Surgical History: Reports: None Pulmonary Embolism Risk Factors: None Cardiac Risk Factors: Reports: Hypertension Pseudomonas Risk Factors: Reports: None Tuberculosis Risk Factors: Reports: None Status Asthmaticus Risk Factors: Reports: None Home Oxygen Use: No Recent Stress Test: No Recent Echo/LV Function: No Current Antibiotic Use: No Current Asthma Medication Use: No Respiratory Distress: None Inadequate Respiratory Effort: No Dysphagia Present: No Stridor Present: No JVD Present: No Accessory Muscle Use: No Retractions: Not Present Diminished Breath Sounds: No Sinus Tenderness: None Grunting Respirations: No Kussmaul Respirations: No Differential Diagnoses: Pneumonia, Bronchitis Review of Systems - Review Of Systems Constitutional: Reports: No symptoms Eyes: Reports: No symptoms Ears, Nose, Mouth, Throat: Reports: No symptoms Respiratory: Reports: Cough, Short of air Cardiac: Reports: No symptoms GI: Reports: No symptoms : Reports: No symptoms Musculoskeletal: Reports: No symptoms Skin: Reports: No symptoms Neurological: Reports: No symptoms Endocrine: Reports: No symptoms Hematologic/Lymphatic: Reports: No symptoms All Other Systems: Reviewed and Negative Past Medical History - Past Medical History Endocrine: Reports: None Cardiovascular: Reports: Hypertension Respiratory: Reports: Other Hematological: Reports: None Gastrointestinal: Reports: Other Genitourinary: Reports: Other Neuro/Psych: Reports: Other Musculoskeletal: Reports: Other Cancer: Reports: Other Last Menstrual Period: n/a - Surgical History General Surgical History: Reports: Unknown - Family History Family History: Reports: Unknown - Social History Smoking Status: Former smoker Hx Substance Use: No Alcohol Screening: Occasionally Physical Exam - Physical Exam Appearance: Well-appearing, No pain distress, Well-nourished Eyes: KEE, EOMI, Conjunctiva clear ENT: Ears normal, Nose normal, Oropharynx normal Respiratory: Rhonchi Cardiovascular: RRR, Pulses normal, No rub, No murmur GI/: Soft, Nontender, No masses, Bowel sounds normal, No Organomegaly Musculoskeletal: Normal strength, ROM intact, No edema, No calf tenderness Skin: Warm, Dry, Normal color Neurological: Sensation intact, Motor intact, Reflexes intact, Cranial nerves intact, Alert, Oriented Psychiatric: Affect appropriate, Mood appropriate Interpretation - Radiology Interpretation Radiology Interpretation By: Radiologist Radiology Results: No acute changes Physician Notification - Case Discussed Physician Notified: pmd Time of Notification: 14:16 (if no pe may go home see him in am) Critical Care Note - Critical Care Note Total Time (mins): 0 Course - Course Hematology/Chemistry: 11/17/16 11:08 11/17/16 11:08 Orders, Labs, Meds: Lab Review 11/17/16 11/17/16 11/17/16 10:52 11:08 11:20 WBC 8.83 RBC 4.61 Hgb 13.9 Hct 41.3 MCV 89.6 MCH 30.2 MCHC 33.7 RDW Coeff of Jostin 12.6 Plt Count 280 Immature Gran % (Auto) 0.2 Neut % (Auto) 66.2 Lymph % (Auto) 23.0 [place] % (Auto) 8.6 Eos % (Auto) 1.5 Baso % (Auto) 0.5 Immature Gran # (Auto) 0.0 Neut # 5.9 Lymph # 2.0 [place] # 0.8 Eos # 0.1 Baso # 0.0 D-Dimer (Manual) 792.31 Puncture Site Rr O2 Saturation 98.0 ABG pH 7.487 H ABG pCO2 34.8 L ABG pO2 95.0 ABG HCO3 26.3 H ABG Total CO2 27 ABG Base Excess 3 H Da Test + FiO2 % 21.0 Sodium 140 Potassium 4.3 Chloride 98 Carbon Dioxide 29 Anion Gap 17.3 BUN 20 H Creatinine 1.71 H Estimated GFR (MDRD) 30.00 BUN/Creatinine Ratio 11.69 Glucose 100 Calcium 10.2 Total Bilirubin 0.40 AST 18 ALT 14 Alkaline Phosphatase 130 Total Creatine Kinase 42 Troponin I 0.0220 B-Natriuretic Peptide 178 H Total Protein 8.0 Albumin 4.4 Globulin 3.6 Albumin/Globulin Ratio 1.22 Influenza A (Rapid) Negative Influenza B (Rapid) Negative Orders Category Date Time Status ABG DRAW REQUEST Stat CARDIO 11/17/16 10:52 Completed EKG-(ED ONLY) Stat CARDIO 11/17/16 10:51 Completed NEBULIZER TREATMENT Stat CARDIO 11/17/16 10:56 Completed NPO REMINDER: IMAGING ONCE CARE 11/17/16 13:21 Ordered ABG Stat LAB 11/17/16 10:52 Completed B-TYPE NATRIURETIC PEPTIDE Stat LAB 11/17/16 11:08 Completed CBC W/ AUTO DIFF Stat LAB 11/17/16 11:08 Completed COMPREHENSIVE METABOLIC PANEL Stat LAB 11/17/16 11:08 Completed CREATINE KINASE Stat LAB 11/17/16 11:08 Completed D-DIMER Stat LAB 11/17/16 11:08 Completed MOLECULAR GROUP A STREP Stat LAB 11/17/16 11:03 Results RAPID FLU A/B Stat LAB 11/17/16 11:20 Completed STREP SCREEN Stat LAB 11/17/16 11:03 Results TROPONIN I Stat LAB 11/17/16 11:08 Completed Ipratropium/Albuterol Neb [Duoneb] MEDS 11/17/16 10:56 Discontinued 1 vial NEB ONCE STA CHEST, 2 VIEWS PA & LAT Stat RADS 11/17/16 10:[address] ABDOMEN/PELVIS WO CONTRAST Stat RADS 11/17/16 10:[address] CHEST PE PROTOCOL Stat RADS 11/17/16 13:20 Ordered Medications Discontinued Medications Generic Name Dose Route Start Last Admin Trade Name Freq PRN Reason Stop Dose Admin Albuterol/Ipratropium 1 vial 11/17/16 10:56 11/17/16 11:12 Duoneb NEB 11/17/16 10:57 1 vial ONCE STA Administration Vital Signs: Temp Pulse Resp BP Pulse Ox 11/17/16 10:44 97.6 F 92 H 20 105/67 97 Departure - Departure Time of Disposition: 14:16 Disposition: HOME SELF-CARE Discharge Problem: Chronic obstructive pulmonary disease Instructions: COPD (Chronic Obstructive Pulmonary Disease) (ED) Condition: Good Pt referred to PMD for follow-up: Yes (will see in am) Additional Instructions: Please call your Family Physician as soon as possible to schedule a follow-up appointment.your doctor wants to see you in AM Allergies/Adverse Reactions: Allergies No Known Allergies Allergy (Verified 11/17/16 10:51) Home Medications: Ambulatory Orders Alprazolam [Xanax] 0.25 mg PO TID PRN #90 tablet 01/18/16 Aspirin [Aspirin EC] 81 mg PO DAILYWM #30 tablet. 01/18/16 Carvedilol [Coreg] 12.5 mg PO BIDWM #60 tablet 01/18/16 Omeprazole [Prilosec] 20 mg PO BIDAC 07/06/16 Albuterol Sulfate [Ventolin Hfa] 2 puff IH Q4H PRN 07/15/16 Fluticasone/Vilanterol [Breo Ellipta 200-25 Mcg INH] 1 each IH DAILY 11/17/16 Ipratropium/Albuterol Neb [Duoneb] 1 vial NEB RTQ6H PRN 11/17/16 Losartan/Hydrochlorothiazide [Hyzaar 50-12.5 mg Tab] 0.5 tab PO QAM 11/17/16
[2016-11-17] MEDS ORDERED: ZITHROMAX PO STA (14:14)
--- NOTE | 2016-11-17 14:20 | CT ---
EXAM: CTA CHEST (PE PROTOCOL) HISTORY: Shortness of breath and abnormal D-dimer TECHNIQUE: CTA with intravenous contrast. Multiplanar images were provided with 3-D reconstruction s. 100 ml Visipaque [id number] FINDINGS: Comparison is made to 07/06/2016. Heart size is borderline enlarged. Trace pericardial effusion. No pulmonary arterial filling defec t. There is mild to moderate aortic atherosclerosis. Prominent thyroid gland. Lungs reveal evidence of early emphysema. No consolidated pneumonia, vascular congestion, pneumotho rax or pleural fluid. The bones reveal no acute abnormality. See also same day CT abdomen and pelvis report. IMPRESSION: 1. No pulmonary arterial thromboembolism. Early pulmonary emphysema. No consolidated pneumonia, v ascular congestion or pleural fluid. 2. Prominent heart size. 3. Mild to moderate atherosclerotic disease.
[2016-11-17] MEDS ORDERED: SOLU-MEDROL 125 MG ONE (14:24)
[2016-11-17] MEDS ORDERED: SOLU-MEDROL 125 MG IVP STA (14:25)
== END 2016-11-17 14:55 | disposition home or self-care (01) ==
LOC: ED 10:43
DX: J44.9 Chronic obstructive pulmonary disease, unspecified (principal); R06.02 Shortness of breath; I10 Essential (primary) hypertension; Z79.899 Other long term (current) drug therapy
CPT/HCPCS: 36415; 80053; 82550; 82803; 83880; 84484; 85025; 85379; 87651; 87804; 87880; 93005; 93010; 94640; 96374; 99283

== ENCOUNTER 2017-03-21 08:15 | Outpatient (CLI) ==
--- NOTE | 2017-03-21 09:25 | US ---
EXAM: Ultrasound bilateral carotid duplex. HISTORY: Dizziness. COMPARISON: None available. TECHNIQUE: Multiple george scale and color Doppler images were obtained. FINDINGS: Please note that estimates of internal carotid artery stenoses are based upon NASCET crite karin. Right carotid: Calcified plaquing noted with shadowing in the region of the internal carotid artery origin although there is at least 50% stenosis suggested. Peak systolic velocity measurement in the right internal carotid artery is 2.4 meters per second. Right internal to common carotid artery peak systolic velocity ratio measures 3.5. End diastolic velocity measurement in the right internal logan tid artery is 0.6 meters per second. Flow in the right vertebral artery is antegrade. Left carotid: Calcified plaquing noted which causes at least 50% stenosis in the proximal internal c arotid artery. Peak systolic velocity measurement in the left internal carotid artery is 2.1 meters per second. Left internal to common carotid artery peak systolic velocity ratio measures 3.0. End d iastolic velocity measurement in the left internal carotid artery measures 0.3 meters per second. Fl ow in the left vertebral artery is antegrade. IMPRESSION: 1. Velocity measurements suggest moderate, 50-69%, stenosis in the right and left internal carotid a rteries. Degree of stenosis may be greater on the right. Consider correlation with CT angiography. 2. Antegrade flow in both vertebral arteries.
--- NOTE | 2017-03-21 09:56 | MRI ---
EXAM: MRI brain without IV contrast. DATE: 21 March 2017. HISTORY: Dizziness. TECHNIQUE: Sagittal T1W, axial T2W, axial FLAIR, axial T1W, axial DWI, and coronal T2W GRE sequences of the brain were obtained using 1.5 Esthela magnet. No IV contrast. COMPARISON: CT head 01/08/2016. FINDINGS: The lateral ventricles are upper normal to slightly prominent. Many cerebral sulci and so me cerebellar sulci are prominent due to involutional change. No midline shift, mass effect or abnor mal extra-axial fluid collection is apparent. No acute infarct, hemorrhage or neoplasm is identified . Minimal T2W/FLAIR hyperintensity is observed in the white matter abutting each lateral ventricle. A small number of 2-3 mm diameter, T2W/FLAIR bright foci are scattered within the johnson radiata and subcortical white matter bilaterally. The george - white matter differentiation is normal. The 7th/8 th cranial nerve complexes, cerebellopontine angles, brainstem, and visible cervical spinal cord are normal. There is no cerebellar tonsillar ectopia. The pituitary gland is normal in size and signal. Corpus callosum is normal in size and configuration. Left vertebral artery is dominant. Flow void s are present in the major intracranial arteries and in the dural venous sinuses. No aneurysm, AVM o r dural venous sinus thrombosis is apparent. No orbit abnormality is identified. Right mastoid air cells are unremarkable. A couple inferior left mastoid air cells have T2W bright, T1W intermediate s ignal. There is no acute sinusitis. Mild adenoid tissue prominence is demonstrated on sagittal sequ ence. No neck mass or lymphadenopathy is detected. IR bright, T2W mildly bright, 4.6 mm and 3.5 x 5 .8 mm foci in the right parietal bone may be a small hemangiomas. No calvarial malignancy or acute f racture is evident. IMPRESSIONS: 1. No acute infarct, hemorrhage, mass or hydrocephalus. 2. Minimal supratentorial small vessel disease. 3. Mild cerebral and minor cerebellar atrophy. 4. Right parietal bone probable small hemangiomas (x2). 5. Minor adenoid tissue enlargement - - likely benign.
== END 2017-03-21 08:16 | disposition home or self-care (01) ==
LOC: RAD 08:15
PROVIDERS: ATTEND Internal Medicine
DX: R42 Dizziness and giddiness (principal)

== ENCOUNTER 2017-03-22 08:31 | Outpatient (CLI) ==
[2017-03-22 09:02] LABS: CREATININE 1.62 mg/dL (0.60-1.30)
--- NOTE | 2017-03-22 13:01 | MRI ---
EXAM: MRA cervical carotid arteries without IV contrast. DATE: 22 March 2017. HISTORY: Abnormal carotid arteries on ultrasound 21 March 2017. TECHNIQUE: Axial 3-D [id number] sequence centered on the vessels of the neck was performed witho ut IV contrast. Thereafter, 3-D MIP reconstruction images of the carotid and vertebral arteries were produced in addition to the source images. 1.2 Esthela magnet was utilized. NOTE: Degree of stenosis in a given vessel is estimated by measuring the vessel lumen diameter at th e stenotic segment and measuring the vessel lumen diameter at a normal segment (usually distal to the stenosis), then calculating the percent of stenosis -- NASCET Criteria is applied. COMPARISON: MRI brain 21 March 2017. Carotid Doppler US 21 March 2017. FINDINGS: The visible portion of the aortic arch reveals no aneurysm, dissection, or rupture. Two v essels arise from the aortic arch. There is a common trunk for the left CCA and right innominate art tung. The origins of the great vessels appear widely patent. Right innominate artery is unremarkable . Right CCA and carotid bulb are normal in diameter, without significant stenosis or prominent plaques. Right ICA origin is 4.7 mm diameter. Located 7.2 mm from the origin, the ICA reveals a 9 mm length stenosis, with minimal luminal diameter 0.9 mm. There appears to be a small dissection flap vs unde rcutting of plaque at the proximal end of this stenosis. Remaining right cervical ICA is normal in di ameter, without significant stenosis or prominent plaques. Right ECA origin reveals minor atheroscle rotic plaque with less than 50% focal narrowing.. Left CCA origin and proximal 7.5 mm of the vessel measure approximately 2.5 mm diameter, compared wit h a more distal diameter of 5.9 mm. Remaining left CCA is normal in diameter, without significant st enosis or prominent plaques. Left carotid bulb atherosclerotic plaques reduce the diameter of the bu lb to 3.1 mm, compared with the distal CCA diameter of 5.6 mm. Reveals a 6.3 mm stenosis with lumina l diameter of 3.1 mm, compared with a immediately distal diameter of 4.8 mm. Located 12 mm from the origin, there is a 7.5 mm length ICA stenosis with luminal narrowing to 3.2 mm, compared with a more distal diameter of 4.6 mm. Left ECA origin and and proximal 3.3 mm of the vessel demonstrate narrowin g to 1.1 mm on source images. Left vertebral artery is dominant. No blood flow signal is identified within the right vertebral art tung. The left vertebral origin and proximal 4 mm of the vessel are not adequately visualized. Withi n the proximal 17 mm of the left vertebral artery, there is a intraluminal linear band which could re present a dissection flap versus artifact. Located 4.4 cm from the origin, the left vertebral artery demonstrates a 14 mm length stenosis with luminal diameter measuring 1.4 mm, compared with the proxi mal and distal diameter of 4.4 mm. The source images demonstrate moderate lingual tonsil and mild palatine tonsil enlargement. Trachea and larynx are unremarkable. No thyroid, submandibular, or parotid gland neoplasm is detected. Serge ed bilateral parotid gland fatty infiltration is evident. No suspicious neck mass or cervical lympha denopathy. No high-grade central canal stenosis is apparent. Trachea is patent. No apical pneumonia , pneumothorax or lung mass is detected. Superior mediastinum reveals no mass or lymphadenopathy. IMPRESSIONS: 1. Common trunk for right innominate and left CCA. 2. Right CCA and carotid bulb are normal. 3. Right cervical ICA proximal high-grade stenosis / string sign (> 80%) with possible short segment dissection. Urgent surgical consultation recommended. 4. Left cervical ICA origin and proximal vessel and mild stenoses (< 50% each). 5. Left CCA origin moderate stenosis (50-69%). 6. Left carotid bulb mild stenosis (< 50%). 7. Left vertebral artery origin moderate stenosis. 8. Right vertebral artery origin mild stenosis. 9. Nonvisualization/occluded right vertebral artery. 10. Dominant left vertebral artery. Flow artifacts vs short segment dissection near the origin. Guzman g segment moderate stenosis in the mid cervical left vertebral artery. 11. Lingual and palatine tonsil enlargement - correlate with physical exam. Critical result: Report called to Dr. Stout's office nurse at 1253 hrs, 22 March 2017.
== END 2017-03-22 08:32 | disposition home or self-care (01) ==
LOC: RAD 08:31
PROVIDERS: ATTEND Internal Medicine
DX: R94.39 Abnormal result of other cardiovascular function study (principal)
CPT/HCPCS: 36415; 82565

== ENCOUNTER 2017-03-28 06:34 | Outpatient (CLI) | payer OTHER ==
[2017-03-28] MEDS ORDERED: ATROPINE SULFATE PFS ONE (06:49)
[2017-03-28] MEDS ORDERED: DOBUTAMINE 250 ML IV ONE (06:49)
--- NOTE | 2017-03-28 09:38 | DOBSTECHO ---
Ordering Physician: SHONA BRIONES Date of Test: 03/28/17 Reason for Examination: CAROTID STENOSIS, CARDIOMYOPATHY Current Medications: CARVEDILOL, OMEPRAZOLE, LOSARTAN, MONTELUKAST, ATORVASTATIN , CLOPIDOGREL, ALPRAZOLAM, ASA, SYMBICORT, ALBUTEROL Height: 65" Weight: 126 LBS Target Heart Rate: 130/154 ST Segment Stage Time HR BPM BP mmhg Rhythm +/- Up Down Comments/Symptoms Control Sitting 64 118/58 SR X NONE Dobutamine 250mg/D5W 5cmg/KG/mn 10cmg/KG/mn 3" 74 140/70 SR X NONE 15cmg/KG/mn 2" 66 SR X NONE 20cmg/KG/mn 2" 81 SR X NONE 25cmg/KG/mn 2" 88 138/76 SR X NONE 30cmg/KG/mn 2" 88 SR X NONE 35cmg/KG/mn :58 102 140/80 SR X NONE 40cmg/KG/mn Time: 4" HR B/P Time: 7" HR B/P Time: 9" HR B/P Recovery 88 132/70 Recovery 77 Recovery 76 Total Time: 11:58 Maximum Heart Rate Reached: 102 Interpretation: 99% OXYGEN SATURATION WITH DOBUTAMINE INFUSION 1. NO EVIDENCE OF ISCHEMIA BY ST-T WAVE FROM HEART RATE 65 BPM TO 102 BPM 2. NO CHEST PAIN OR CHEST DISCOMFORT 3. HYPOKINETIC STIFF SEPTUM AT REST AND NORMAL LEFT VENTRICULAR CONTRACTILITY WITH DOBUTAMINE INFUSION 2 "D" "M" MODE ECHO --LEFT VENTRICULAR EJECTION FRACTION 60%, NORMAL VALVES PFT--FEV-1.45 LITER/ MILD TO MODERATE COPD ABOVE AVERAGE SURGICAL RISKS-- DISCUSSED RISKS OF SURGERY/ANESTHESIA WITH PATIENT MODERATELY STABLE MTDD
--- NOTE | 2017-03-28 09:44 | ECHO2D ---
Date of Exam: 03/28/17 Ordering Physician: CB SANTOS Room #: OP Reason for Echo: CAROTID STENOSIS, CARDIOMYOPATHY M-Mode Normal Adult Results LV Dimensions Normal Adult Results AoV Opening excursions >1.6 >1.6 LVEDD-base- 3.5-5.8 4.0 Ao root dimensions 2.0-3.7 3.0 LVESD-base- 3.1-4.6 L. Atrium dimensions 1.9-3.8 3.6 Post. Wall thickness 0.8-1.1 1.4 IV septum (thickness) 0.7-1.2 1.5 Post. Wall excursion 0.72-1.3 NORMAL Septal motion 0.6 Systolic motion R. Ventricular cavity 1.5-2.0 NORMAL LVEF 60% 60% Paradoxical septal wall motion NORMAL 2-D : STIFF HYPOKINETIC SEPTUM--NORMAL VALVES--NORMAL LEFT VENTRICLE AND LEFT ATRIAL CAVITIES, NO EFFUSION, NO THROMBUS M-MODE: MV: NORMAL AV: NORMAL TV: NORMAL PV: CHAMBER SIZE: NORMAL WALL MOTION: STIFF HYPERKINETIC SEPTUM PERICARDIUM: NORMAL INTERPRETATION: 1. LEFT VENTRICULAR HYPERTROPHY WITH STIFF SEPTUM 2. LEFT VENTRICULAR EJECTION FRACTION 60% 3. NORMAL VALVES MTDD
--- NOTE | 2017-03-28 09:50 | ECHOSTRESS ---
Date of Exam: 03/28/17 Ordering Physician: CB SANTOS Reason for Echo: CAROTID STENOSIS, CARDIOMYOPATHY, DOBUTAMINE STRESS TEST--NO ISCHEMIA M-Mode Normal Adult Results LV Dimensions Normal Adult Results AoV Opening excursions >1.6 LVEDD-base- 3.5-5.8 Ao root dimensions 2.0-3.7 LVESD-base- 3.1-4.6 L. Atrium dimensions 1.9-3.8 Post. Wall thickness 0.8-1.1 IV septum (thickness) 0.7-1.2 Post. Wall excursion 0.72-1.3 Septal motion Systolic motion R. Ventricular cavity 1.5-2.0 LVEF 60% Paradoxical septal wall motion 2-D: STIFF HYPOKINETIC SEPTUM AT REST--NORMAL LEFT VENTRICULAR CONTRACTILITY WITH DOBUTAMINE INFUSION M-MODE: MV: AV: TV: PV: CHAMBER SIZE: WALL MOTION: STIFF HYPOKINETIC SEPTUM AT REST--NORMAL LEFT VENTRICULAR CONTRACTILITY WITH DOBUTAMINE INFUSION PERICARDIUM: INTERPRETATION: 1. STIFF HYPOKINETIC SEPTUM AT REST--NORMAL LEFT VENTRICULAR CONTRACTILITY WITH DOBUTAMINE INFUSION MTDD
== END 2017-03-28 06:35 | disposition home or self-care (01) ==
LOC: CAR 06:34
PROVIDERS: ATTEND Internal Medicine
DX: I65.29 Occlusion and stenosis of unspecified carotid artery (principal); I42.9 Cardiomyopathy, unspecified; R06.02 Shortness of breath

== ENCOUNTER 2019-02-13 10:14 | Outpatient (CLI) ==
--- NOTE | 2019-02-13 10:48 | DI ---
EXAM: Chest two views HISTORY: Chronic bronchitis. FINDINGS: Compared to 11/17/2016. Cardiomegaly is again suggested. There is atherosclerotic diseas e present. There is diffuse, chronic appearing interstitial accentuation. Lungs are hyperinflated a nd there is relative lucency of the lung zones suggesting pulmonary emphysema. No acute infiltrates are seen. No vascular congestion. There is no consolidation, visible pleural fluid or pneumothorax. Bones reveal subtle loss of height anteriorly of a mid-thoracic vertebral body which is new since p revious exam although does not appear acute radiographically. IMPRESSION: 1. A component chronic obstructive pulmonary disease is suggested, correlate clinically. No acute c ardiopulmonary process.
--- NOTE | 2019-02-14 09:27 | MAMMO ---
EXAM: Digital screening mammogram with Tomosynthesis HISTORY: Screening COMPARISON: None FINDINGS: Digital MLO and CC views of the right and left breast were performed. Tomosynthesis was p erformed. Computer aided detection utilized. The breast tissue is heterogeneously dense, which could obscure small masses. Benign and vascular bilateral calcifications. There is no evidence for mass, asymmetry, distortion, or suspicious calcifications in either breast. IMPRESSION: 1. No evidence of malignancy in the right or left breast. 2. Annual screening mammogram is recommended in one year. BIRADS category 2, benign
== END 2019-02-13 10:15 | disposition home or self-care (01) ==
LOC: RAD 10:14
PROVIDERS: ATTEND Internal Medicine
DX: Z12.31 Encounter for screening mammogram for malignant neoplasm of breast (principal); J42 Unspecified chronic bronchitis

== ENCOUNTER 2022-01-26 13:26 | Inpatient (IN) ==
[2022-01-26] MEDS ORDERED: SODIUM CHLORIDE 1,000 ML IV STA (13:44)
[2022-01-26] MEDS ORDERED: VENTOLIN HFA (PER PUFF-WITH SPACER) IH ONE (13:45)
[2022-01-26] MEDS ORDERED: SOLU-MEDROL 125 MG IVP STA (13:45)
--- NOTE | 2022-01-26 13:49 | ED.PDOC ---
General ED Provider: Dr. REMIGIO GOODSON MD Chief Complaint: Shortness of Air Stated Complaint: mild to mod off and on dry cough and short of breath for a few days, Day 12 today of covid, not on home oxygen, no hx dm or mi, +bilateral resting hand tremors since diagnosed w/ covid, no NV, occasional fever Time Seen by Provider: 01/26/22 13:29 Mode of Arrival: Walk-In Information Source: Patient Primary Care Provider: CB SANTOS Nursing and Triage Documentation Reviewed and Agree: Yes Does patient meet sepsis criteria?: No System Inflammatory Response Syndrome: Not Applicable Sepsis Protocol: For patient's 13 years and over: Temp is 96.8 and below OR 101 and greater Pulse >90 BPM Resp >20/minute Acutely Altered Mental Status Are patient's symptoms suggestive of a new infection, such as: -Pneumonia -Skin, Soft Tissue -Endocarditis -UTI -Bone, Joint Infection -Implantable Device -Acute Abdominal Infection -Wound Infection -Meningitis -Blood Stream Catheter Infection -Unknown Review of Systems Review Of Systems Constitutional: Reports Fever and Malaise Eyes: Denies Vision change Ears, Nose, Mouth, Throat: Denies Throat pain Respiratory: Reports Cough and Short of air; Denies Stridor Cardiac: Denies Chest pain GI: Denies Abdominal pain or Vomiting : Denies Dysuria Musculoskeletal: Denies Neck pain Skin: Denies Rash or Cyanosis Neurological: Denies Cognitive dysfunction All Other Systems: Other [facility] Medical History (Updated 01/26/22 @ 15:29 by REMIGIO GOODSON MD) Hypertension Thrush, oral Uterine prolapse Social History History of recent travel: No Surgical History Kidney stone Female Reproductive History Menstrual Hx Hysterectomy: No Hx Tubal Ligation: Yes Physical Exam Physical Exam Appearance: Reports No pain distress Ill-appearing: None Pain Distress: None Eyes: Reports KEE, EOMI and Conjunctiva clear ENT: Reports Oropharynx normal Neck: Supple Respiratory: Reports Airway patent, Breath sounds clear and Breath sounds equal Cardiovascular: Reports RRR GI/: Reports Soft and Nontender Musculoskeletal: Reports No edema Skin: Reports Warm and Dry Neurological: Reports Alert and Oriented Psychiatric: Reports Affect appropriate Interpretation Radiology Interpretation Radiology Interpretation By: Radiologist Radiology Results: No acute changes Exam Interpreted: CXR EKG Interpretation Time of EKG #1: 15:27 Rate: Normal Rhythm: Sinus Interpretation: pvc, no stemi Critical Care Note Critical Care Note Total Critical Care Time (mins): 0 Course Course Hematology/Chemistry: 01/26/22 13:55 01/26/22 13:55 Orders, Labs, Meds: Lab Review 01/26/22 01/26/22 01/26/22 13:55 13:55 13:55 WBC 8.40 RBC 3.30 L Hgb 10.0 L Hct 31.0 L MCV 93.9 MCH 30.3 MCHC 32.3 RDW Coeff of Jostin 14.4 Plt Count 229 Immature Gran % (Auto) 0.4 Neut % (Auto) 62.5 Lymph % (Auto) 17.6 Campbell % (Auto) 17.4 H Eos % (Auto) 1.7 Baso % (Auto) 0.4 Neut # (Auto) 5.3 Lymph # (Auto) 1.5 Campbell # (Auto) 1.5 Eos # (Auto) 0.1 Baso # (Auto) 0.0 Immature Gran # (Auto) 0.0 Puncture Site Base Excess O2 Saturation ABG pH ABG pCO2 ABG pO2 ABG HCO3 ABG Total CO2 Da Test Hemoglobin Oxyhemoglobin Carboxyhemoglobin Total Hemoglobin FiO2 % Sodium 140.6 Potassium 4.05 Chloride 107.1 H Carbon Dioxide 24.0 Anion Gap 13.55 BUN 20.2 H Creatinine 1.64 H Estimated GFR (MDRD) 31.00 BUN/Creatinine Ratio 12.31 Glucose 100.9 Lactic Acid 1.51 Calcium 8.11 L Total Bilirubin 0.58 AST 24.7 ALT 21.7 Alkaline Phosphatase 113.6 Troponin I 0.059 NT-Pro-B Natriuret Pep Total Protein 7.49 Albumin 4.01 Globulin 3.48 Albumin/Globulin Ratio 1.15 01/26/22 01/26/22 14:05 14:08 WBC RBC Hgb Hct MCV MCH MCHC RDW Coeff of Jostin Plt Count Immature Gran % (Auto) Neut % (Auto) Lymph % (Auto) Campbell % (Auto) Eos % (Auto) Baso % (Auto) Neut # (Auto) Lymph # (Auto) Campbell # (Auto) Eos # (Auto) Baso # (Auto) Immature Gran # (Auto) Puncture Site R rad Base Excess -2.5 L O2 Saturation 92.9 L ABG pH 7.44 ABG pCO2 32.0 L ABG pO2 64.0 L ABG HCO3 21.7 ABG Total CO2 22.7 Da Test Y Hemoglobin 1.3 Oxyhemoglobin 91.6 L Carboxyhemoglobin 2.7 H Total Hemoglobin 10.8 L FiO2 % 21.0 Sodium Potassium Chloride Carbon Dioxide Anion Gap BUN Creatinine Estimated GFR (MDRD) BUN/Creatinine Ratio Glucose Lactic Acid Calcium Total Bilirubin AST ALT Alkaline Phosphatase Troponin I NT-Pro-B Natriuret Pep 43508.000 H Total Protein Albumin Globulin Albumin/Globulin Ratio Orders Category Date Time Status ABG DRAW REQUEST Stat CARDIO 01/26/22 13:44 Completed EKG-(ED ONLY) Stat CARDIO 01/26/22 13:44 Completed METERED DOSE INHALATION Routine CARDIO 01/26/22 13:46 Completed OXYGEN [ED APPLY O2] .ONCE EMERGENCY 01/26/22 13:46 Active ABG COOX Stat LAB 01/26/22 14:08 Completed BLOOD CULTURE Stat LAB 01/26/22 14:05 Received BNP [NT-PROBNP] Stat LAB 01/26/22 14:05 Completed CBC W/ AUTO DIFF Stat LAB 01/26/22 13:55 Completed CMP [COMPREHENSIVE METABOLIC PANEL] Stat LAB 01/26/22 13:55 Completed LACTIC ACID Stat LAB 01/26/22 13:55 Completed TROPONIN I Stat LAB 01/26/22 13:55 Completed URINALYSIS C & S IF INDICATED Stat LAB 01/26/22 13:44 Uncollected Albuterol Inhaler(with Spacer) [Ventolin Hfa (Per Puff- MEDS 01/26/22 13:45 D iscontinued with Spacer)] 2 puff IH ONCE ONE Methylprednisolone Sod Succ/Pf [Solu-Medrol 125 mg] MEDS 01/26/22 13:45 Discontinued 125 mg IVP ONCE STA Sodium Chloride 0.9% [Sodium Chloride] 1,000 ml MEDS 01/26/22 13:44 Discontinued IV BOLUS CHEST, 1V AP ONLY Stat RADS 01/26/22 13:44 Completed Medications Discontinued Medications Generic Name Dose Route Start Last Admin Trade Name Freq PRN Reason Stop Dose Admin Albuterol Sulfate 2 puff 01/26/22 13:45 01/26/22 14:09 Albuterol Sulfate (Ventolin Hfa) 18 Gm 1 Puff With Spacer IH 01/26/22 13:46 2 puff ONCE ONE Administration Sodium Chloride 1,000 mls @ 1,000 mls/hr 01/26/22 13:44 01/26/22 14:47 Sodium Chloride IV 01/26/22 14:43 1,000 mls/hr BOLUS STA Administration Methylprednisolone Sodium Succinate 125 mg 01/26/22 13:45 01/26/22 14:44 Methylprednisolone Sod Succ/Pf 125 Mg/2 Ml Vial IVP 01/26/22 13:46 125 mg ONCE STA Administration Vital Signs: Temp Pulse Resp BP Pulse Ox 01/26/22 13:26 97.3 F L 84 18 113/57 L 90 L Discharge Plan Discharge Patient Disposition: ADMITTED INPATIENT Discharge Problem: Hypoxia, Acute dyspnea Prescriptions: No Action losartan-hydrochlorothiazide 1 TAB tablet 0.5 tab PO QAM alprazolam 0.25 MG tablet 0.25 mg PO TID PRN (Reason: Anxiety) Qty: 90 0RF aspirin 81 MG tablet,delayed release (DR/EC) 81 mg PO DAILYWM Qty: 30 0RF albuterol sulfate [Ventolin HFA] 8 GM HFA aerosol inhaler 2 puff inhalation Q4H PRN (Reason: SHORT OF AIR) cetirizine [Zyrtec] 10 mg Tablet 10 mg PO BID budesonide-formoterol [Symbicort] 160-4.5 mcg/actuation Hfa Aerosol Inhaler 2 puff INHALATION BID furosemide [Lasix] 40 mg Tablet 40 mg PO DIRECTED atorvastatin 40 mg Tablet 40 mg PO BEDTIME potassium chloride 10 mEq Capsule, Extended Release 10 meq PO DAILY PRN (Reason: Edema) metoprolol tartrate 50 mg Tablet 50 mg PO DAILY montelukast 10 mg Tablet 10 mg PO BEDTIME ergocalciferol (vitamin D2) [Vitamin D2] 50,000 unit Capsule 50,000 unit PO WEEKLY Did you review [place] COAGULATION OPERATOR?: Not Applicable ED Provider: REMIGIO GOODSON Condition: Stable Physician Progress Note: [] admit and treatment d/w Dr Santos
[2022-01-26 14:14] LABS: ABG O2 HGB 91.6 % (95-100); ABG PH 7.44 (7.35-7.45); BEecf -2.5 (-2.0-3.0); COHb 2.7 (0.5-1.5); HCO3 21.7 (21-28); MetHb 1.3 (0-1.5); TCO2 22.7 (19-24); sO2 92.9 % (94-98); tHb 10.8 g/dl (11.7-17.4)
[2022-01-26 14:17] LABS: BASOPHILS % (AUTO) 0.4 % (0.0-3.0); EOSINOPHILS # (AUTO) 0.1 K/ul (0.0-0.7); EOSINOPHILS % (AUTO) 1.7 % (0.0-7.0); IMMATURE GRANULOCYTE % (AUTO) 0.4 % (0.0-5.0); LYMPHOCYTES # (AUTO) 1.5 K/uL (0.60-3.4); LYMPHOCYTES % (AUTO) 17.6 (10.0-50.0); MEAN CORPUSCULAR HEMOGLOBIN 30.3 pg (27.0-31.0); MEAN CORPUSCULAR HGB CONC 32.3 (31.8-35.4); MEAN CORPUSCULAR VOLUME 93.9 fl (81.0-99.0); MONOCYTES # (AUTO) 1.5 K/uL (0.4-2.0); MONOCYTES % (AUTO) 17.4 (0-10); NEUTROPHILS # (AUTO) 5.3 K/ul (2.0-6.9); NEUTROPHILS % (AUTO) 62.5 % (42.2-75.2); PLATELET COUNT 229 10^3/uL (140-440); RDW COEFFICIENT OF VARIATION 14.4 % (11.6-14.8)
[2022-01-26 14:30] LABS: ALANINE AMINOTRANSFERASE 21.7 U/L (0-35); ALBUMIN 4.01 g/dL (3.5-5.0); ALKALINE PHOSPHATASE 113.6 U/L (53-141); ASPARTATE AMINO TRANSFERASE 24.7 U/L (14-36); BILIRUBIN,TOTAL 0.58 mg/dL (0.2-1.3); BLOOD UREA NITROGEN 20.2 mg/dL (7-17); CALCIUM 8.11 mg/dL (8.4-10.2); CHLORIDE 107.1 mmol/L (98-107); CREATININE 1.64 mg/dL (0.60-1.30); GLUCOSE 100.9 mg/dL (74-106); POTASSIUM 4.05 mmol/L (3.5-5.1); SODIUM 140.6 mmol/L (134.5-145); TOTAL PROTEIN 7.49 g/dL (6.3-8.2)
[2022-01-26 14:41] LABS: TROPONIN I 0.059 ng/ml (0.0000-0.120)
--- NOTE | 2022-01-26 14:46 | DI ---
EXAM: CHEST RADIOGRAPH (1 VIEW) TECHNIQUE: Frontal Chest Radiograph. HISTORY: Weakness COMPARISON: 02/13/2019 FINDINGS: Lines, Tubes, Devices: Aardiac monitoring leads are present Lungs and Pleura: No focal consolidation. No pleural effusion. No pneumothorax. No pulmonary edema . Cardiomediastinum: Cardiac silhouette is moderately enlarged.. Atherosclerotic aortic calcifications . Bones/Soft Tissues: No acute osseous abnormality. No soft tissue abnormality. Upper Abdomen: Within normal limits. IMPRESSION: Moderate cardiomegaly with no evidence of pulmonary vascular congestion
[2022-01-26] MEDS ORDERED: TYLENOL PO PRN (15:30)
[2022-01-26] MEDS ORDERED: SODIUM CHLORIDE 1,000 ML IV SCH (15:30)
[2022-01-26] MEDS ORDERED: XANAX PO PRN (15:36)
[2022-01-26] MEDS ORDERED: VENTOLIN HFA (PER PUFF-WITH SPACER) IH PRN (15:36)
[2022-01-26] MEDS ORDERED: LASIX TAB PO SCH (16:00)
[2022-01-26] MEDS: ROCEPHIN 1 GM/50 ML D5W 1 GM/50 ML BAG IV SCH (16:08)
[2022-01-26] MEDS ORDERED: LASIX IVP ONE (16:55)
[2022-01-26 17:05] VITALS: BMI 27.4
[2022-01-26] MEDS: ZITHROMAX PO SCH (17:40)
--- NOTE | 2022-01-26 18:14 | CT ---
EXAM: CHEST CT WITHOUT CONTRAST HISTORY: Shortness of breath. TECHNIQUE: CT acquisition of the chest from the thoracic inlet to the upper abdomen without IV contra st administration.2-D coronal and sagittal reformatted images were obtained from the axial source vinny ges. IV Contrast: None CT Dose Reduction Techniques Performed: Yes. COMPARISON: CT angiogram of the chest dated 11/17/2016. FINDINGS: Lines, Tubes, Devices: None. Lung Parenchyma and Airways: Central airways are patent without endobronchial lesion. Emphysematous changes are present bilaterally with upper lung zone predominance consistent with centrilobular emphy sema. There is mild consolidation at the left lung base posteriorly consistent with pneumonia. Ther e is no other pulmonary airspace or interstitial disease. No suspicious pulmonary nodule. Pleural Space: No pleural effusion or thickening. No pneumothorax. Thoracic Inlet, Mediastinum, and Cecy: Thyroid gland is normal. No lymphadenopathy. Heart, Vessels, and Pericardium: The main pulmonary artery is normal caliber. The thoracic aorta is not dilated. Vascular calcifications are present consistent with atherosclerosis. There is extensiv e coronary artery calcification. There is diffuse cardiomegaly. There is no pericardial effusion or thickening. Bones and Soft Tissues: There are mild degenerative changes of the spine. There is no fracture or ly tic lesion. Chest wall soft tissues are unremarkable. Upper Abdomen: The visualized portions of the liver, spleen, and adrenals are normal. There are mult iple calculi in the atrophic right kidney. IMPRESSION: 1. Centrilobular emphysema. 2. Mild left lower lobe pneumonia. 3. Atherosclerosis. 4. Diffuse cardiomegaly. 5. Coronary artery calcification. 6. Mild degenerative changes of the spine. 7. Multiple calculi in the atrophic right kidney. 8. Otherwise normal noncontrast CT scan of the chest. All CT scans are performed using dose optimization techniques as appropriate to the performed exam an d include at least one of the following: Automated exposure control, adjustment of the mA and/or kV according t o size, and the use of iterative reconstruction technique.
[2022-01-26 18:57] LABS: BILIRUBIN,URINE Negative (NEGATIVE); CLARITY,URINE Clear (CLEAR); COLOR,URINE Yellow (YELLOW); GLUCOSE, URINE (UA) Negative (NEGATIVE); KETONES,URINE Negative (NEGATIVE); LEUKOCYTE ESTERASE ,URINE Trace (NEGATIVE); NITRITE,URINE Negative (NEGATIVE); PH,URINE 5.5 (5-9); PROTEIN,URINE 1+ (NEGATIVE); URINE, BLOOD Trace-lysed (NEGATIVE); UROBILINOGEN,URINE 0.2 (0.2)
[2022-01-26 19:09] LABS: URINE RBC, MICROSCOPIC 0-2 (0-2); URINE WBC, MICROSCOPIC 0-2 (0-2)
[2022-01-26] MEDS: ALBUTEROL 0.083% NEB NEB SCH (20:15)
[2022-01-26] MEDS: LIPITOR PO SCH (20:34)
[2022-01-26] MEDS: PEPCID PO SCH (20:34)
[2022-01-26] MEDS: SYMBICORT 160-4.5 MCG INHALER IH SCH (20:34)
[2022-01-26] MEDS: SINGULAIR PO SCH (20:34)
[2022-01-26 22:04] LABS: CREATINE KINASE 83.7 U/L (30-135)
[2022-01-26 22:16] LABS: TROPONIN I 0.035 ng/ml (0.0000-0.120)
[2022-01-27] MEDS: ALBUTEROL 0.083% NEB NEB SCH (04:45)
[2022-01-27 05:26] LABS: HEMATOCRIT 29.9 % (37.0-47.0); HEMOGLOBIN 9.6 g/dl (12.0-16.0); IMMATURE GRANULOCYTE % (AUTO) 0.5 % (0.0-5.0); LYMPHOCYTES # (AUTO) 0.6 K/uL (0.60-3.4); LYMPHOCYTES % (AUTO) 11.2 (10.0-50.0); MEAN CORPUSCULAR HEMOGLOBIN 30.3 pg (27.0-31.0); MEAN CORPUSCULAR HGB CONC 32.1 (31.8-35.4); MEAN CORPUSCULAR VOLUME 94.3 fl (81.0-99.0); MONOCYTES # (AUTO) 0.2 K/uL (0.4-2.0); MONOCYTES % (AUTO) 3.9 (0-10); NEUTROPHILS # (AUTO) 4.8 K/ul (2.0-6.9); NEUTROPHILS % (AUTO) 84.4 % (42.2-75.2); PLATELET COUNT 222 10^3/uL (140-440); RDW COEFFICIENT OF VARIATION 14.3 % (11.6-14.8); RED BLOOD COUNT 3.17 10^6/ul (4.20-5.40); WHITE BLOOD COUNT 5.63 K/ul (4.6-10.2)
[2022-01-27 05:40] LABS: CREATINE KINASE 84.2 U/L (30-135)
[2022-01-27 05:50] LABS: ALANINE AMINOTRANSFERASE 27.1 U/L (0-35); ALBUMIN 3.77 g/dL (3.5-5.0); ALKALINE PHOSPHATASE 106.9 U/L (53-141); ASPARTATE AMINO TRANSFERASE 28.3 U/L (14-36); BILIRUBIN,TOTAL 0.24 mg/dL (0.2-1.3); BLOOD UREA NITROGEN 26.7 mg/dL (7-17); CALCIUM 7.67 mg/dL (8.4-10.2); CARBON DIOXIDE 18.8 mmol/L (22-30.0); CHLORIDE 110.7 mmol/L (98-107); CREATININE 1.55 mg/dL (0.60-1.30); GLUCOSE 174.7 mg/dL (74-106); POTASSIUM 4.12 mmol/L (3.5-5.1); SODIUM 141.5 mmol/L (134.5-145); TOTAL PROTEIN 7.01 g/dL (6.3-8.2)
[2022-01-27 05:52] LABS: TROPONIN I 0.028 ng/ml (0.0000-0.120)
[2022-01-27] MEDS: DECADRON IM SCH (08:47)
[2022-01-27] MEDS: ASPIRIN EC PO SCH (08:48)
[2022-01-27] MEDS: LOPRESSOR PO SCH (08:48)
[2022-01-27] MEDS: PEPCID PO SCH ×2 (08:48→21:00)
[2022-01-27] MEDS: MICRO-K CAP PO SCH (08:48)
[2022-01-27] MEDS: ZITHROMAX PO SCH (08:49)
[2022-01-27] MEDS: SYMBICORT 160-4.5 MCG INHALER IH SCH ×2 (08:50→21:01)
[2022-01-27] MEDS: ROCEPHIN 1 GM/50 ML D5W 1 GM/50 ML BAG IV SCH (08:52)
[2022-01-27] MEDS ORDERED: HYZAAR 50-12.5 MG TAB PO SCH (09:00)
[2022-01-27] MEDS ORDERED: XOPENEX 1.25 MG NEB SCH ×2 (14:00→20:00)
--- NOTE | 2022-01-27 14:16 | PN ---
DATE OF SERVICE: 01/26/22 SUBJECTIVE: The patient was seen and examined in the emergency room. The patient sent out from the office call she was sent to the emergency room because of fever, chills and history of COVID 19. In the emergency room the patient was in borderline respiratory failure. In chest x-ray one view did not show anything but we will do a CT scan of the chest. The patient is going to be hospitalized on IV antibiotics, steroids and NEBS. The patient wants DNR. CONDITION: Stable She was seen and examined with the Nurse Practitioner. History and Physical was done and plan was carried out. TIME SPENT: More than 30 minutes. Plan and coordination of the patient's care discussed in the presence of nurse. RYAN
[2022-01-27] MEDS: XOPENEX 0.63 MG NEB SCH (19:35)
[2022-01-27] MEDS: SINGULAIR PO SCH (20:59)
[2022-01-27] MEDS: LIPITOR PO SCH (21:00)
[2022-01-28] MEDS: XOPENEX 0.63 MG NEB SCH ×3 (04:45→19:25)
[2022-01-28] MEDS: LASIX TAB PO SCH (05:40)
[2022-01-28 06:04] LABS: BASOPHILS % (AUTO) 0.1 % (0.0-3.0); HEMATOCRIT 30.7 % (37.0-47.0); HEMOGLOBIN 9.7 g/dl (12.0-16.0); IMMATURE GRANULOCYTE # (AUTO) 0.1 (0.0-1.0); IMMATURE GRANULOCYTE % (AUTO) 0.5 % (0.0-5.0); LYMPHOCYTES # (AUTO) 1.1 K/uL (0.60-3.4); LYMPHOCYTES % (AUTO) 9.5 (10.0-50.0); MEAN CORPUSCULAR HGB CONC 31.6 (31.8-35.4); MONOCYTES # (AUTO) 1.1 K/uL (0.4-2.0); MONOCYTES % (AUTO) 9.4 (0-10); NEUTROPHILS # (AUTO) 9.1 K/ul (2.0-6.9); NEUTROPHILS % (AUTO) 80.5 % (42.2-75.2); PLATELET COUNT 252 10^3/uL (140-440); RDW COEFFICIENT OF VARIATION 14.5 % (11.6-14.8); RED BLOOD COUNT 3.23 10^6/ul (4.20-5.40)
[2022-01-28 06:05] LABS: WHITE BLOOD COUNT 11.34 K/ul (4.6-10.2)
[2022-01-28 06:07] LABS: ALANINE AMINOTRANSFERASE 32.3 U/L (0-35); ALBUMIN 3.97 g/dL (3.5-5.0); ALKALINE PHOSPHATASE 102.4 U/L (53-141); ASPARTATE AMINO TRANSFERASE 31.9 U/L (14-36); BILIRUBIN,TOTAL 0.27 mg/dL (0.2-1.3); BLOOD UREA NITROGEN 32.6 mg/dL (7-17); CALCIUM 7.89 mg/dL (8.4-10.2); CARBON DIOXIDE 19.1 mmol/L (22-30.0); CHLORIDE 112.8 mmol/L (98-107); CREATININE 1.49 mg/dL (0.60-1.30); GLUCOSE 126.4 mg/dL (74-106); POTASSIUM 3.52 mmol/L (3.5-5.1); SODIUM 144.4 mmol/L (134.5-145); TOTAL PROTEIN 7.31 g/dL (6.3-8.2)
--- NOTE | 2022-01-28 09:03 | PCM.PROG ---
Attending Provider: ATTENDING PROVIDER: Dr. CB SANTOS This patient is seen with Sabine Ackerman, Nurse Practitioner. DATE OF SERVICE: 01/28/22 SUBJECTIVE: This 71 year old /WHITE F was hospitalized 01/26/22. Shortness of breath has somewhat improved. Still with productive cough with thick yellow sputum. No fever. Seems to be somewhat better with Xopenex and decrease in steroids. REVIEW OF SYSTEMS: CONSTITUTIONAL: No night sweats. No fatigue, malaise, lethargy. No fever or chills. Weakness. HEENT: Eyes: No visual changes. No eye pain. No eye discharge. ENT: No runny nose. No epistaxis. No sinus pain. No odynophagia. No congestion. RESPIRATORY: Cough, no congestion. No hemoptysis. Shortness of breath. CARDIOVASCULAR: No angina symptoms. No CHF symptoms. No atypical chest pain for CAD. No palpitations. No orthopnea.. GASTROINTESTINAL: No abdominal pain. No nausea or vomiting. No diarrhea or constipation. No hematemesis. No hematochezia. GENITOURINARY: No urgency. No frequency. No dysuria. No hematuria. No obstructive symptoms. No discharge. No pain. No significant abnormal bleeding. MUSCULOSKELETAL: No musculoskeletal pain; no joint swelling. NEUROLOGICAL: Awake, alert, oriented to time, place and person. No headache. No neck pain. No syncope. No seizures. No dizziness. PSYCHIATRIC: Not anxious. No depression. No suicidal thoughts. No homicidal th oughts. SKIN: No rash. No lesions. No wounds. ENDOCRINE: No unexplained weight loss. No weight gain. HEMATOLOGIC/LYMPHATIC: No anemia. No purpura. No petechiae. No prolonged or excessive bleeding. No palpable lymph nodes. PHYSICAL EXAMINATION: GENERAL: The patient is awake, alert and oriented, sitting in bed in no distress. VITAL SIGNS: Temperature 97.2 F, Pulse 101, Respiratory Rate 18, BP 130/69, Pulse Ox 92% HEENT: Head normocephalic, atraumatic. Eyes: Extraocular muscles are intact. Pupils are equal, round and reactive to light and accommodation. Ears: No lesions. Nose appeared normal. Throat: No exudate or erythema. NECK: Supple. No JVD, no carotid bruit. No lymphadenopathy or thyromegaly. LUNGS: Severely diminished breath sounds. Clear to auscultation. Percussion note normal. Chest symmetrical. HEART: S1, S2, no S3. No murmurs. No cyanosis or clubbing. No ascites. Pulses: Dorsalis pedis and posterior tibial pulses +1 to +2 both sides. ABDOMEN: Soft. Non-tender. Bowel sounds active. No CVA tenderness. No mass felt. EXTREMITIES: No edema. Full range of motion of all extremities, equal. NEUROLOGIC: No focal deficit. Cranial nerves II through XII are grossly intact. No headache. No double vision. SKIN: Not dry. Intact. Turgor-normal. LYMPHATIC: No palpable lymph nodes/no lymphedema. MUSCULOSKELETAL: Normal joints with no swelling. Muscle tone is normal. LAB REVIEW: 01/28/22 05:09 01/28/22 05:09 01/28/22 05:09: Sodium 144.4, Potassium 3.52, Chloride 112.8 H, Carbon Dioxide 19.1 L, Anion Gap 16.02, BUN 32.6 H, Creatinine 1.49 H, Estimated GFR (MDRD) 34.00, BUN/Creatinine Ratio 21.87, Glucose 126.4 H, Calcium 7.89 L, Total Bilirubin 0.27, AST 31.9, ALT 32.3, Alkaline Phosphatase 102.4, Total Protein 7.31, Albumin 3.97, Globulin 3.34, Albumin/Globulin Ratio 1.18 01/28/22 05:09: WBC 11.34 H D, RBC 3.23 L, Hgb 9.7 L, Hct 30.7 L, MCV 95.0, MCH 30.0, MCHC 31.6 L, RDW Coeff of Jostin 14.5, Plt Count 252, Immature Gran % (Auto) 0.5, Neut % (Auto) 80.5 H, Lymph % (Auto) 9.5 L, Swift % (Auto) 9.4, Eos % (Auto) 0.0, Baso % (Auto) 0.1, Neut # (Auto) 9.1 H, Lymph # (Auto) 1.1, Swift # (Auto) 1.1, Eos # (Auto) 0.0, Baso # (Auto) 0.0, Immature Gran # (Auto) 0.1 ASSESSMENT: Please see below. 1. Left lower lobe pneumonia 2. Recent COVID 19 3. Renal azotemia 4. Underlining Chronic kidney disease stage II 5. Chronic anemia 6. COPD PLAN: 1. Discontinue Losartan/HCTZ 2. Continue Losartan 50mg 3. Repeat NT PROBNP 4. 2D Echo Plan and coordination of the patient's care discussed in the presence of Wool Batting Worker and nurse. SCRIBED BY: ARLIN JORDAN Dental Assistant Instructor scribed while in presence of service performed by Dr. Santos/Sabine Ackerman APRN on 01/28/22 ([id number])
[2022-01-28] MEDS: DECADRON IM SCH (09:12)
[2022-01-28] MEDS: SYMBICORT 160-4.5 MCG INHALER IH SCH ×2 (09:12→20:57)
[2022-01-28] MEDS: ROCEPHIN 1 GM/50 ML D5W 1 GM/50 ML BAG IV SCH (09:12)
[2022-01-28] MEDS: ARTIFICIAL TEARS DROPS OP SCH (09:12)
[2022-01-28] MEDS: LOPRESSOR PO SCH (09:13)
[2022-01-28] MEDS: MICRO-K CAP PO SCH (09:13)
[2022-01-28] MEDS: COZAAR PO SCH (09:13)
[2022-01-28] MEDS: PEPCID PO SCH ×2 (09:13→20:55)
[2022-01-28] MEDS: ZITHROMAX PO SCH (09:13)
[2022-01-28] MEDS: ASPIRIN EC PO SCH (09:13)
[2022-01-28] MEDS ORDERED: IMODIUM ONE (13:23)
[2022-01-28] MEDS ORDERED: IMODIUM PO ONE (13:35)
--- NOTE | 2022-01-28 14:18 | PN ---
DATE OF SERVICE: 01/27/22 SUBJECTIVE: 71 year white female hospitalized with weakness, cough and congestion with history of fever. The patient had been COVID positive 15 days ago. The patient improved initially but has deteriorated. This morning she is feeling a lot better. Coughing much less. Less short of breath at rest. REVIEW OF SYSTEMS: CONSTITUTIONAL: No night sweats. No fatigue, malaise, lethargy. No fever or chills. HEENT: Eyes: No visual changes. No eye pain. No eye discharge. ENT: No runny nose. No epistaxis. No sinus pain. No sore throat. No odynophagia. No congestion. RESPIRATORY:Occasional cough, no congestion. No hemoptysis. Mild shortness of breath. CARDIOVASCULAR: No angina symptoms. No CHF symptoms. No atypical chest pain for CAD. No palpitations. No PND. No orthopnea. GASTROINTESTINAL: No abdominal pain. No nausea or vomiting. No diarrhea or constipation. No hematemesis. No hematochezia. GENITOURINARY: No urgency. No frequency. No dysuria. No hematuria. No obstructive symptoms. No discharge. No pain. No significant abnormal bleeding. MUSCULOSKELETAL: No musculoskeletal pain; no joint swelling. NEUROLOGICAL: No headache. No neck pain. No syncope. No seizures. No dizziness. PSYCHIATRIC: Not anxious. No depression. No suicidal thoughts. No homicidal thoughts. SKIN: No rash. No lesions. No wounds. ENDOCRINE: No unexplained weight loss. No weight gain. HEMATOLOGIC/LYMPHATIC: No anemia. No purpura. No petechiae. No prolonged or excessive bleeding. No palpable lymph nodes. PHYSICAL EXAMINATION: VITAL SIGNS: Temperature 98.2, pulse 98, respiratory rate 16, blood pressure 112/64 and pulse ox 95%. HEENT: Head normocephalic, atraumatic. Eyes: Extraocular muscles are intact. Pupils are equal, round and reactive to light and accommodation. Ears: No lesions. Nose appeared normal. Throat: No exudate or erythema. NECK: Supple. No JVD, no carotid bruit. No lymphadenopathy or thyromegaly. LUNGS: Decreased breath sounds but clear to auscultation. Percussion note normal. Chest symmetrical. HEART: S1, S2, no S3. No murmurs. No cyanosis or clubbing. No ascites. Pulses: Dorsalis pedis and posterior tibial pulses +1 to +2 bilaterally. ABDOMEN: Soft. Nontender. Bowel sounds active. No CVA tenderness. No mass felt. EXTREMITIES: No edema. Full range of motion of all extremities, equal. NEUROLOGIC: No focal deficit. Cranial nerves II through XII are grossly intact. No headache. No double vision. SKIN: Not dry. Intact. Turgor - normal. LYMPHATIC: No palpable lymph nodes/no lymphedema. MUSCULOSKELETAL: Normal joints with no swelling. Muscle tone is normal. LABS: Hgb 9.6, hct 29, WBC 5,600 normal differential, creatinine 1.5, BUN 26, potassium 4.1. ASSESSMENT: 1. Respiratory failure on admission seems to be under control 2. Bronchitis seems to be resolving 3. No evidence CHF clinically. We will watch for CHF the BNP was 18,400 PLAN: 1. Will continue the patient's Lasix 2. Continue Azithromycin and Rocephin and Dexamethasone CONDITION: Stable, improving. TIME SPENT: More than 30 minutes. Plan and coordination of the patient's care discussed in the presence of nurse. RYAN
--- NOTE | 2022-01-28 14:27 | ECHO2D ---
Date of Exam: 01/28/2022 Ordering Physician: DR. CB SANTOS Room #: [id number] Reason for Echo: CAROTID STENOSIS, CARDIOMYOPATHY, SOB, HTN M-Mode Normal Adult Results LV Dimensions Normal Adult Results AoV Opening excursions >1.6 >1.6 LVEDD-base- 3.5-5.8 5.7 Ao root dimensions 2.0-3.7 3.0 LVESD-base- 3.1-4.6 L. Atrium dimensions 1.9-3.8 5.6 Post. Wall thickness 0.8-1.1 1.1 IV septum (thickness) 0.7-1.2 1.3 Post. Wall excursion 0.72-1.3 0.8 Septal motion NORMAL Systolic motion R. Ventricular cavity 1.5-2.0 3.9 LVEF 60% 35% Paradoxical septal wall motion NORMAL 2-D : ENLARGED LEFT ATRIAL, LEFT VENTRICLE AND RIGHT VENTRICLE CAVITIES--HYPOKINETIC INFERIOR WALL, NO EFFUSION, NO THROMBUS, VALVES--NORMAL COLOR FLOW: MILD TO MODERATE TRICUSPID AND MITRAL REGURGITATION M-MODE: MV: NORMAL AV: NORMAL TV: NORMAL PV: NORMAL CHAMBER SIZE: ENLARGED LEFT ATRIAL, RIGHT VENTRICLE AND LEFT VENTRICLE CAVITIES WALL MOTION: HYPOKINETIC INFERIOR WALL PERICARDIUM: NORMAL INTERPRETATION: 1. LEFT VENTRICLE HYPERTROPHY WITH ENLARGED LEFT ATRIAL CAVITY 2. ENLARGED LEFT VENTRICLE AND RIGHT VENTRICLE CAVITIES 3. HYPOKINETIC INFERIOR WALL EJECTION FRACTION 35% 4. MILD TO MODERATE TRICUSPID REGURGITATION AND MITRAL REGURGITATION MTDD
[2022-01-28] MEDS: SINGULAIR PO SCH (20:56)
[2022-01-28] MEDS: LIPITOR PO SCH (20:56)
[2022-01-29] MEDS: XOPENEX 0.63 MG NEB SCH ×3 (04:35→19:15)
[2022-01-29 05:35] LABS: BASOPHILS % (AUTO) 0.1 % (0.0-3.0); HEMATOCRIT 30.2 % (37.0-47.0); HEMOGLOBIN 9.6 g/dl (12.0-16.0); IMMATURE GRANULOCYTE % (AUTO) 0.4 % (0.0-5.0); LYMPHOCYTES # (AUTO) 1.8 K/uL (0.60-3.4); LYMPHOCYTES % (AUTO) 19.4 (10.0-50.0); MEAN CORPUSCULAR HEMOGLOBIN 29.8 pg (27.0-31.0); MEAN CORPUSCULAR HGB CONC 31.8 (31.8-35.4); MEAN CORPUSCULAR VOLUME 93.8 fl (81.0-99.0); MONOCYTES # (AUTO) 0.9 K/uL (0.4-2.0); MONOCYTES % (AUTO) 9.7 (0-10); NEUTROPHILS # (AUTO) 6.4 K/ul (2.0-6.9); NEUTROPHILS % (AUTO) 70.4 % (42.2-75.2); PLATELET COUNT 249 10^3/uL (140-440); RDW COEFFICIENT OF VARIATION 14.4 % (11.6-14.8); RED BLOOD COUNT 3.22 10^6/ul (4.20-5.40); WHITE BLOOD COUNT 9.09 K/ul (4.6-10.2)
[2022-01-29 05:47] LABS: ALANINE AMINOTRANSFERASE 31.8 U/L (0-35); ALBUMIN 3.88 g/dL (3.5-5.0); ALKALINE PHOSPHATASE 96.6 U/L (53-141); BILIRUBIN,TOTAL 0.31 mg/dL (0.2-1.3); BLOOD UREA NITROGEN 34.5 mg/dL (7-17); CALCIUM 8.28 mg/dL (8.4-10.2); CARBON DIOXIDE 20.5 mmol/L (22-30.0); CHLORIDE 112.3 mmol/L (98-107); CREATININE 1.56 mg/dL (0.60-1.30); GLUCOSE 112.8 mg/dL (74-106); POTASSIUM 3.57 mmol/L (3.5-5.1); SODIUM 143.4 mmol/L (134.5-145); TOTAL PROTEIN 7.04 g/dL (6.3-8.2)
[2022-01-29] MEDS: ARTIFICIAL TEARS DROPS OP SCH ×2 (07:44→08:48)
[2022-01-29] MEDS: COZAAR PO SCH (08:43)
[2022-01-29] MEDS: PEPCID PO SCH ×2 (08:43→20:37)
[2022-01-29] MEDS: ASPIRIN EC PO SCH (08:43)
[2022-01-29] MEDS: MICRO-K CAP PO SCH (08:43)
[2022-01-29] MEDS: LOPRESSOR PO SCH (08:43)
[2022-01-29] MEDS: SYMBICORT 160-4.5 MCG INHALER IH SCH ×2 (08:44→20:38)
[2022-01-29] MEDS: ROCEPHIN 1 GM/50 ML D5W 1 GM/50 ML BAG IV SCH (08:46)
[2022-01-29] MEDS: DECADRON IM SCH (09:05)
[2022-01-29] MEDS ORDERED: IMODIUM PO ONE (10:28)
--- NOTE | 2022-01-29 14:07 | PN ---
DATE OF SERVICE: 01/28/22 SUBJECTIVE: 71 year old white female hospitalized with COVID 19 with weakness, cough and shortness of breath. Her echo shows that her heart is enlarged from the one she had done before a few years ago. Also showed ejection fraction down from practically normal to 35-40% with borderline enlarged LV and enlarged LA cavity. She has mild to moderate tricuspid and mitral regurgitation. Findings discussed with her. The patient was seen and examined with the Nurse Practitioner. We will continue to give the patient diuretic, potassium supplement, unloading agent. Explained about all of that to the patient. TIME SPENT: More than 30 minutes. Plan and coordination of the patient's care discussed in the presence of nurse. RYAN
[2022-01-29] MEDS: LIPITOR PO SCH (20:37)
[2022-01-29] MEDS: SINGULAIR PO SCH (20:38)
[2022-01-29 22:29] VITALS: TEMP 97.7
[2022-01-30] MEDS: XOPENEX 0.63 MG NEB SCH (04:45)
[2022-01-30 06:10] VITALS: BP 153/83
[2022-01-30] MEDS: LASIX TAB PO SCH (06:26)
[2022-01-30 06:56] LABS: ALANINE AMINOTRANSFERASE 24.6 U/L (0-35); ALBUMIN 3.46 g/dL (3.5-5.0); ALKALINE PHOSPHATASE 78.8 U/L (53-141); ASPARTATE AMINO TRANSFERASE 37.4 U/L (14-36); BILIRUBIN,TOTAL 0.42 mg/dL (0.2-1.3); BLOOD UREA NITROGEN 17.3 mg/dL (7-17); CALCIUM 8.44 mg/dL (8.4-10.2); CARBON DIOXIDE 30.6 mmol/L (22-30.0); CHLORIDE 94.4 mmol/L (98-107); CREATININE 1.11 mg/dL (0.60-1.30); GLUCOSE 84.5 mg/dL (74-106); POTASSIUM 3.52 mmol/L (3.5-5.1); SODIUM 130.6 mmol/L (134.5-145); TOTAL PROTEIN 5.9 g/dL (6.3-8.2)
[2022-01-30 07:18] LABS: BASOPHILS % (AUTO) 0.1 % (0.0-3.0); EOSINOPHILS # (AUTO) 0.1 K/ul (0.0-0.7); EOSINOPHILS % (AUTO) 0.3 % (0.0-7.0); HEMATOCRIT 38.2 % (37.0-47.0); HEMOGLOBIN 13.1 g/dl (12.0-16.0); IMMATURE GRANULOCYTE # (AUTO) 0.1 (0.0-1.0); IMMATURE GRANULOCYTE % (AUTO) 0.4 % (0.0-5.0); LYMPHOCYTES # (AUTO) 8.3 K/uL (0.60-3.4); LYMPHOCYTES % (AUTO) 57.9 (10.0-50.0); MEAN CORPUSCULAR HEMOGLOBIN 31.8 pg (27.0-31.0); MEAN CORPUSCULAR HGB CONC 34.3 (31.8-35.4); MEAN CORPUSCULAR VOLUME 92.7 fl (81.0-99.0); MONOCYTES # (AUTO) 0.9 K/uL (0.4-2.0); MONOCYTES % (AUTO) 6.3 (0-10); PLATELET COUNT 160 10^3/uL (140-440); RDW COEFFICIENT OF VARIATION 12.3 % (11.6-14.8); RED BLOOD COUNT 4.12 10^6/ul (4.20-5.40); WHITE BLOOD COUNT 14.32 K/ul (4.6-10.2)
[2022-01-30 07:19] LABS: HYPOCHROMASIA 1+ (NOT PRESENT); POIKILOCYTOSIS 2+ (NOT PRESENT)
[2022-01-30 07:20] LABS: ANISOCYTOSIS 1+ (NOT PRESENT)
[2022-01-30] MEDS: PEPCID PO SCH (09:22)
[2022-01-30] MEDS: ASPIRIN EC PO SCH (09:22)
[2022-01-30] MEDS: LOPRESSOR PO SCH (09:23)
[2022-01-30] MEDS: MICRO-K CAP PO SCH (09:23)
[2022-01-30] MEDS: DECADRON IM SCH (09:24)
[2022-01-30] MEDS: COZAAR PO SCH (09:24)
[2022-01-30] MEDS: ARTIFICIAL TEARS DROPS OP SCH (09:26)
[2022-01-30] MEDS: SYMBICORT 160-4.5 MCG INHALER IH SCH (09:27)
--- NOTE | 2022-02-01 13:10 | PN ---
DATE OF SERVICE: 01/30/22 SUBJECTIVE: 71 year old white female hospitalized with COVID 19 status with COPD with acute exacerbation. The patient's condition has improved. She is ready to go home. Her voice is better. Her appetite has improved. REVIEW OF SYSTEMS: CONSTITUTIONAL: No night sweats. No fatigue, malaise, lethargy. No fever or chills. HEENT: Eyes: No visual changes. No eye pain. No eye discharge. ENT: No runny nose. No epistaxis. No sinus pain. No sore throat. No odynophagia. No congestion. RESPIRATORY: No cough, no congestion. No hemoptysis. No shortness of breath. CARDIOVASCULAR: No angina symptoms. No CHF symptoms. No atypical chest pain for CAD. No palpitations. No PND. No orthopnea. GASTROINTESTINAL: No abdominal pain. No nausea or vomiting. No diarrhea or constipation. No hematemesis. No hematochezia. GENITOURINARY: No urgency. No frequency. No dysuria. No hematuria. No obstructive symptoms. No discharge. No pain. No significant abnormal bleeding. MUSCULOSKELETAL: No musculoskeletal pain; no joint swelling. NEUROLOGICAL: No headache. No neck pain. No syncope. No seizures. No dizziness. PSYCHIATRIC: Not anxious. No depression. No suicidal thoughts. No homicidal thoughts. SKIN: No rash. No lesions. No wounds. ENDOCRINE: No unexplained weight loss. No weight gain. HEMATOLOGIC/LYMPHATIC: No anemia. No purpura. No petechiae. No prolonged or excessive bleeding. No palpable lymph nodes. PHYSICAL EXAMINATION: VITAL SIGNS: Temperature 97.7, pulse 88, respiratory rate 15, blood pressure 150/83 and pulse ox 97% on room air. HEENT: Head normocephalic, atraumatic. Eyes: Extraocular muscles are intact. Pupils are equal, round and reactive to light and accommodation. Ears: No lesions. Nose appeared normal. Throat: No exudate or erythema. NECK: Supple. No JVD, no carotid bruit. No lymphadenopathy or thyromegaly. LUNGS: Decreased breath sounds but good air entry. Percussion note normal. Chest symmetrical. HEART: S1, S2, no S3. No murmurs. No cyanosis or clubbing. No ascites. Pulses: Dorsalis pedis and posterior tibial pulses +1 to +2 bilaterally. ABDOMEN: Soft. Nontender. Bowel sounds active. No CVA tenderness. No mass felt. EXTREMITIES: No edema. Full range of motion of all extremities, equal. NEUROLOGIC: No focal deficit. Cranial nerves II through XII are grossly intact. No headache. No double vision. SKIN: Not dry. Intact. Turgor - normal. LYMPHATIC: No palpable lymph nodes/no lymphedema. MUSCULOSKELETAL: Normal joints with no swelling. Muscle tone is normal. LABS: hgb 9.6, hct 30, WBC 9,000 normal differential, creatinine 1.1, BUN 17, potassium 3.5 ASSESSMENT: 1. COPD exacerbation 2. CHF 3. Hypertension 4. LV dysfunction 5. Severe chronic lung disease PLAN: 1. Discharge the patient home 2. K-tab 20meq PO daily 3. Lasix 40mg to be taken every day 4. Prednisone 10mg PO daily for 10 days 5. Omnicef 300mg PO twice a day for 5 days 6. Come back in 5-7 days 7. The patient is advised pulmonary rehab 8. Advised to walk a mile a day CONDITION: Stable. TIME SPENT: More than 30 minutes. Plan and coordination of the patient's care discussed in the presence of nurse. RYAN
--- NOTE | 2022-02-10 14:41 | PN ---
DATE OF SERVICE: 01/29/22 SUBJECTIVE: 71 year old white female hospitalized with COVID 19 status of nearly two weeks duration with weakness with shortness of breath, cough and congestion. The patient's condition seems to have improved. Her clinically findings did not go along with the CHF but she was shortness of breath with minimal exertion. PRO BNP has risen from 18,000 to 26,000 even though she was treated with Lasix and other measures. In any case the patient clinically has improved and she wants to go home. She says that she is feeling wonderful and appetite has improved and she is less short of breath. She is able to go to the bathroom on her own. REVIEW OF SYSTEMS: CONSTITUTIONAL: No night sweats. No fatigue, malaise, lethargy. No fever or chills. HEENT: Eyes: No visual changes. No eye pain. No eye discharge. ENT: No runny nose. No epistaxis. No sinus pain. No sore throat. No odynophagia. No congestion. RESPIRATORY: No cough, no congestion. No hemoptysis. No shortness of breath. CARDIOVASCULAR: No angina symptoms. No CHF symptoms. No atypical chest pain for CAD. No palpitations. No PND. No orthopnea. GASTROINTESTINAL: No abdominal pain. No nausea or vomiting. No diarrhea or constipation. No hematemesis. No hematochezia.Appetite has improved. GENITOURINARY: No urgency. No frequency. No dysuria. No hematuria. No obstructive symptoms. No discharge. No pain. No significant abnormal bleeding. MUSCULOSKELETAL: No musculoskeletal pain; no joint swelling. NEUROLOGICAL: No headache. No neck pain. No syncope. No seizures. No dizziness. PSYCHIATRIC: Not anxious. No depression. No suicidal thoughts. No homicidal thoughts. SKIN: No rash. No lesions. No wounds. ENDOCRINE: No unexplained weight loss. No weight gain. HEMATOLOGIC/LYMPHATIC: No anemia. No purpura. No petechiae. No prolonged or excessive bleeding. No palpable lymph nodes. PHYSICAL EXAMINATION: VITAL SIGNS: Temperature 97.1, pulse 80, respiratory rate 18, blood pressure 126/63 and pulse ox 95% on room air. HEENT: Head normocephalic, atraumatic. Eyes: Extraocular muscles are intact. Pupils are equal, round and reactive to light and accommodation. Ears: No lesions. Nose appeared normal. Throat: No exudate or erythema. NECK: Supple. No JVD, no carotid bruit. No lymphadenopathy or thyromegaly. LUNGS: Decreased breath sounds but good air entry. Percussion note normal. Chest symmetrical. HEART: S1, S2, no S3. No murmurs. No cyanosis or clubbing. No ascites. Pulses: Dorsalis pedis and posterior tibial pulses +1 to +2 bilaterally. ABDOMEN: Soft. Nontender. Bowel sounds active. No CVA tenderness. No mass felt. EXTREMITIES: No edema. Full range of motion of all extremities, equal. NEUROLOGIC: No focal deficit. Cranial nerves II through XII are grossly intact. No headache. No double vision. SKIN: Not dry. Intact. Turgor - normal. LYMPHATIC: No palpable lymph nodes/no lymphedema. MUSCULOSKELETAL: Normal joints with no swelling. Muscle tone is normal. LABS: Hgb 9.6, hct 30, WBC 9,000 normal differential, creatinine 1.5, BUN 34, potassium 3.5 ASSESSMENT: 1. COPD with acute exacerbation from COVID 19 status, improving 2. CHF is under control 3. Chronic kidney disease 4. Chronic anemia PLAN: 1. Advised to continue all the treatment with continued Lasix, Potassium. The patient was advised to take Lasix and Potassium on regular basis. She agreed. 2. Echo showed decreased ejection fraction close to 35-40% with borderline enlarged LV cavity. Explained about these findings also. The echo finding has changed from the previous echo done a few years ago. The patient declining of any further workup in a way of heart disease, etc. TIME SPENT: More than 30 minutes. Plan and coordination of the patient's care discussed in the presence of nurse. RYAN
--- NOTE | 2022-02-16 09:05 | DS ---
DATE OF SERVICE: 01/30/22 FINAL DIAGNOSIS: 1. COPD exacerbation with COVID 19 status 2. Dehydration 3. Congestive heart failure 4. LV dysfunction with possibility of coronary artery disease 5. Chronic respiratory failure with history of heavy smoking in the past with chronic lung disease 6. Hypertension 7. Dyslipidemia 8. Gastroesophageal reflux disease 9. Generalized anxiety disorder 10.Chronic anemia, the patient has declined to undergo any colonoscopy DISCHARGE INSTRUCTIONS: Discharge home. Instruction to come back in 5-7 days. MEDICATIONS AT DISCHARGE: Xanax Aspirin Losartan/Hydrochlorothiazide Atorvastatin Zyrtec Vitamin D3 K-tab 20meq PO daily Metoprolol Famotidine NEW PRESCRIPTIONS: Prednisone 10mg daily for 10 days Omnicef 300mg PO twice a day for 5 days. K-tab 20meq PO daily Lasix to be taken 40mg PO daily DISCONTINUED MEDICATIONS: Potassium Chloride 10meq Lasix 40mg PO four times a week LABS: Hgb 9.6, hct 30, WBC 9,000 normal differential, creatinine 1.1, BUN 17, potassium 3.5 HOSPITAL COURSE: 71 year old white female hospitalized with weakness, cough, shortness of breath. The patient has COVID 19 15 days ago which has lingered around each side effects and the patient hasn't been feeling well. She lives by herself and not take her medication on regular basis. This patient was treated for congestive heart failure, COPD with exacerbation with IV antibiotics, steroids and NEBS treatment. Her condition improved. She is up and about felt really strong. Ready to go home after second day of the hospital stay. In any case the patient is up and about. Her appetite seems to have improved. There are no symptoms of CHF or coronary insufficiency. She declined any further workup in a way of stress test of clinical stress test. Echo showed ejection fraction to be 35-40%, borderline enlarged LV cavity and enlarged LA cavity, change in her echo done before. She is strongly advised to take Lasix 40mg every day along with Potassium and the rest of the medications. She was taken of Hydrochlorothiazide. She was advised to take only Losartan. Prednisone and Omnicef were added for her bronchitis. Condition at the time of discharge is stable. Please make sure that when she comes back she is off Hyzaar. She needs to be on only Losartan as she is already on regular dose of Lasix along with Potassium. The patient may need a PFT as an outpatient. TIME SPENT: More than 60 minutes. DAVIDD
--- NOTE | 2022-02-16 09:05 | PN ---
01/26/22: Level 5 01/27/22: Intermediate 01/28/22: Intermediate 01/29/22: Intermediate 01/30/22: D as in discharge MTDD
--- NOTE | 2022-02-16 09:31 | HP ---
DATE OF SERVICE: 01/26/22 REASON FOR HOSPITALIZATION/HISTORY OF PRESENT ILLNESS: 71 year old white female who presents to the emergency room with shortness of breath on 01/26/22. She had tested positive for COVID 12 days ago. She has had a cough off and on but feeling worse today. Occasional fever, low grade off and on. We had called her out a Z-pack and Prednisone along with the renal dose of Paxlovid. PAST MEDICAL HISTORY: Recurrent falls Left carotid stenosis 60% has a CTA August of 2021 Left carotid bruit Chronic kidney disease stage III/IV Dependent leg edema Right knee arthritis Osteoporosis does Prolia every 6 months Vitamin D deficiency Right sciatica Atherosclerotic heart disease Right vertebral artery high grade stenosis Chronic anemia B12 deficiency Dilated cardiomyopathy COPD Former smoker Dyslipidemia LVH Right macular degeneration see [facility] PAST SURGICAL HISTORY: Right carotid endarterectomy 04/[address] Recinos she had MRI of the brain 09/15 REVIEW OF SYSTEMS: CONSTITUTIONAL: No night sweats. No fatigue, malaise, lethargy. No fever or chills. HEENT: Eyes: No visual changes. No eye pain. No eye discharge. ENT: No runny nose. No epistaxis. No sinus pain. No sore throat. No odynophagia. No ear pain. No congestion. RESPIRATORY: Cough, no congestion. No hemoptysis. Shortness of breath. CARDIOVASCULAR: No angina symptoms. No CHF symptoms. No atypical chest pain for CAD. No palpitations. No PND. No orthopnea. GASTROINTESTINAL: No abdominal pain. No nausea or vomiting. No diarrhea or constipation. No hematemesis. No hematochezia. GENITOURINARY: No urgency. No frequency. No dysuria. No hematuria. No obstructive symptoms. No discharge. No pain. No significant abnormal bleeding. MUSCULOSKELETAL: No musculoskeletal pain. No joint swelling. No arthritis. NEUROLOGICAL: No headache. No neck pain. No syncope. No seizures. No dizziness. PSYCHIATRIC: Not anxious. No depression. No suicidal thoughts. No homicidal thoughts. SKIN: No rash. No lesions. No wounds. ENDOCRINE: No unexplained weight loss. No weight gain. HEMATOLOGIC/LYMPHATIC: No anemia. No purpura. No petechiae. No prolonged or excessive bleeding. No palpable lymph nodes. PERSONAL/FAMILY/SOCIAL HISTORY: She is a former heavy smoker. She just quit approximately 5 years ago about the time of her carotid endarterectomy. She is lives at home by herself. No alcohol or illicit drug use. She is COVID vaccinated and boosted but again tested positive 12 days ago. MEDICATIONS: Aspirin 81mg PO daily Alprazolam 0.25mg PO TID PRN Ventolin HFA 2 puff inhalation Q 4 hours PRN Losartan-Hydrochlorothiazide 0.5 tablet QAM Montelukast 10mg PO bedtime Atorvastatin 40mg PO bedtime Symbicort two puff BID Potassium chloride 10meq PO 4 times week PRN Metoprolol Tartrate 50mg PO daily Lasix 40mg PO four times a week Vitamin D2 50,000 unit PO weekly Famotidine 10mg PO BID Refresh tears two drops both eyes daily ALLERGIES: No known allergies PHYSICAL EXAMINATION: GENERAL: The patient is alert and oriented. VITAL SIGNS: Temperature 97.3, heart rate 84, respiratory rate 18, blood pressure 113/57 and pulse ox 90% on room air. HEENT: Head normocephalic, atraumatic. Eyes: Extraocular muscles are intact. Pupils are equal, round and reactive to light and accommodation. Ears: No lesions. Nose appeared normal. Throat: No exudate or erythema. NECK: Supple. No JVD, no carotid bruit. No lymphadenopathy or thyromegaly. LUNGS: Diminished breath sounds bilaterally. Bilaterally wheezing. Clear to auscultation. Percussion note normal. Chest symmetrical. HEART: S1, S2, no S3. No murmur. No cyanosis or clubbing. No ascites. Pulses: Dorsalis pedis and posterior tibial pulses +1 to +2 bilaterally. ABDOMEN: Soft. Nontender. Bowel sounds active. No CVA tenderness. No mass felt. EXTREMITIES: No edema. Full range of motion of all extremities, equal. NEUROLOGIC: No focal deficit. Cranial nerves II through XII are grossly intact. No headache, no double vision or headache. SKIN: Not dry. Intact. Turgor - normal. LYMPHATIC: No palpable lymph nodes/no lymphedema. MUSCULOSKELETAL: Normal joints with no swelling. Muscle tone is normal. LABS: WBC 8.4, hgb 10.0, hct 31.0, plt count 229, sodium 140, potassium 4.05, BUN 20, creatinine 1.64, glucose 100.9. Lactic acid 1.51, AST 24, ALT 21. ABGs initially on room air O2 saturation 92, PH 7.4, pCO2 32, Po2 64, bicarb 21.7. NT PRO BNP 18,400. Chest x-ray showed moderate cardiomegaly with no evidence of pulmonary vascular congestion. ASSESSMENT: 1. Shortness of breath 2. COVID 19 infection 3. Renal azotemia 4. Chronic kidney disease stage 3-4 5. Hypotension PLAN: 1. We will admit 2. Routine telemetry orders 3. CBC and CMP daily 4. CT of the chest with and without contrast 5. Rocephin 1 gram IV daily 6. Zithromax 500mg PO daily times three days 7. Solu-Medrol 125mg IV Q 8 hours 8. Albuterol NEBS TID scheduled 9. U/A 10.Urine culture if needed 11.Oxygen 1-2 liters 12.Lasix 20mg IV times one 13.Normal saline at 75cc an hour 14. Regular diet 15. 2D echo Will follow closely. TIME SPENT: More than 70 minutes. MTDD
== END 2022-01-30 12:30 | disposition home or self-care (01) | DRG 190 ==
LOC: ED 13:26 → MEDSURG A 15:43
PROVIDERS: ADMIT Internal Medicine; ATTEND Internal Medicine
DX: Z79.899 Other long term (current) drug therapy; R06.00 Dyspnea, unspecified; J44.1 Chronic obstructive pulmonary disease with (acute) exacerbation; U07.1 COVID-19; F41.9 Anxiety disorder, unspecified; E78.5 Hyperlipidemia, unspecified; D64.9 Anemia, unspecified; N18.2 Chronic kidney disease, stage 2 (mild); R25.1 Tremor, unspecified; Z87.891 Personal history of nicotine dependence; I13.0 Hypertensive heart and chronic kidney disease with heart failure and stage 1 through stage 4 chronic kidney disease, or unspecified chronic kidney disease; R06.02 Shortness of breath; Z51.81 Encounter for therapeutic drug level monitoring; R09.02 Hypoxemia; E86.0 Dehydration; I50.20 Unspecified systolic (congestive) heart failure; K21.9 Gastro-esophageal reflux disease without esophagitis; J44.9 Chronic obstructive pulmonary disease, unspecified